=== PATIENT | female | born 1995 | race Caucasian/White ===

== ENCOUNTER 2016-10-28 19:41 | Outpatient (CLI) | payer OTHER ==
--- NOTE | 2016-10-28 20:34 | Non Stress Test Report ---
Non Stress Test Datetime Report Generated by CPN: 10/28/2016 20:34 DEMOGRAPHIC Test Number: 1 EGA NST: 37.2 INDICATION Indication for Study: Ordered by Provider Indication for Study (NST) Other: LC MONITORING Monitor Explained: Monitor Explained; Test Explained; Patient Verbalized Understanding Time on Monitor: 10/28/2016 19:56 Time off Monitor: 10/28/2016 20:25 NST Duration: 29 NST INTERVENTIONS NST Interventions: PO Hydration; Reposition Patient Physician Notified NST: Dr. Neilsen BABY A: [id number] BABY A Movement : Present Contraction Frequency : Irritability FHR Baseline : 150 Accelerations : 15X15 Decelerations : Variable Variability : Moderate 6-25bpm NST Review: Meets Criteria for Reactive NST NST Review and Verified By : Dusty Mcpherson RN NSGordy Results: Reactive NST REPORT Report Trigger: Send Report
--- NOTE | 2016-10-28 23:38 | L&D Discharge Summary ---
OB Discharge Summary Datetime Report Generated by CPN: 10/28/2016 23:38 DISCHARGE DIAGNOSIS Diagnosis/Symptoms: Other Diagnoses/Symptoms Other: NST Number of Babies in Womb: 1 Parity: 0 DIET/ACTIVITY/RESTRICTIONS Diet: Regular Activity: Normal Activity TEACHING/INSTRUCTIONS/REFERRALS Instructions Given To: Patient and significant other Instructions Understood: Patient Verbalized Understanding; Support Person Verbalized Understanding Referrals: None Educational Materials- Other: NST DISCHARGE INFORMATION Discharged AMA: No Discharge Date/Time: 10/28/2016 20:30 Discharged To: Home Discharge Provider Name: Dr. Crabtree Accompanied By: Significant Other Discharge Method: Ambulatory Condition: Stable FOLLOW UP INFORMATION Follow Up With: [facility] Follow Up On: As Scheduled Follow Up Phone Number: [facility] - Comments: Discussed NST and signs and symptoms of when to return to office or hospital with patient and significant other. Both, patient and significant other, verbalized understanding. Patient discharged home for reactive NST via ambulation in stable condition. GENERAL INSTR-CALL PROVIDER IF: Contractions: Contractions or cramps become more frequent than 8 in one hour or 4 in 20 minutes; Regular painful contractions every 5 minutes or less for one hour. Time your contractions from the beginning of one to the beginning of the next Pressure: Pressure in your vagina or lower abdomen that may feel like the baby is pushing down Period Like Cramps: Period-like cramps or low dull backache that may come and go Cramps/Diarrhea: Abdominal cramps that may be accompanied by diarrhea Gush of Fluid/Blood: Gush of fluid or blood from your vagina (it is normal to have spotting after vaginal exam or intercourse) Vaginal Discharge: Change in the type or amount of vaginal discharge Decreased Movement: Your baby is not moving as much as usual- 4 movements in 1 hour after drinking and resting on side Temperature: Temperature greater than 100.0(F) orally
== END 2016-10-28 20:30 | disposition home or self-care (01) ==
LOC: LC 19:41
PROVIDERS: ATTEND Obstetrics & Gynecology
PROC: 4A1HXCZ Monitoring of Products of Conception, Cardiac Rate, External Approach (ICD-10-PCS; principal; 2016-10-28)
DX: O76 Abnormality in fetal heart rate and rhythm complicating labor and delivery (principal); Z3A.37 37 weeks gestation of pregnancy
CPT/HCPCS: 59025

== ENCOUNTER 2016-11-04 18:11 | Outpatient (CLI) | payer OTHER ==
--- NOTE | 2016-11-04 19:04 | Non Stress Test Report ---
Non Stress Test Datetime Report Generated by CPN: 11/04/2016 19:03 DEMOGRAPHIC EGA NST: 38.2 INDICATION Indication for Study: Diabetes Mellitus MONITORING Monitor Explained: Monitor Explained; Test Explained; Patient Verbalized Understanding Time on Monitor: 11/04/2016 18:27 Time off Monitor: 11/04/2016 18:53 NST Duration: 26 NST INTERVENTIONS NST Interventions: PO Hydration; Reposition Patient Physician Notified NST: A. Emmel CNM BABY A Movement : Present Contraction Frequency : none FHR Baseline : 140 Accelerations : 15X15 Decelerations : None Variability : Moderate 6-25bpm NST Review: Meets Criteria for Reactive NST NST Review and Verified By : TIP Bates Results: Reactive NST REPORT Report Trigger: Send Report
--- NOTE | 2016-11-04 21:09 | L&D Discharge Summary ---
OB Discharge Summary Datetime Report Generated by CPN: 11/04/2016 21:08 DISCHARGE DIAGNOSIS Diagnosis/Symptoms: Reassuring Surveillance - Annotate Details Diagnoses/Symptoms Other: IUP, 38.2, Reactive NST Gestation: 37.2 Number of Babies in Womb: 1 Parity: 0 DIET/ACTIVITY/RESTRICTIONS Diet: Regular Activity: Normal Activity TEACHING/INSTRUCTIONS/REFERRALS Instructions Given To: Patient Instructions Understood: Patient Verbalized Understanding; Support Person Verbalized Understanding Referrals: None Educational Materials- Other: [employer] DISCHARGE INFORMATION Discharged AMA: No Discharge Date/Time: 11/04/2016 19:01 Discharged To: Home Discharge Provider Name: Faisal Paz CNM Accompanied By: self Discharge Method: Ambulatory Condition: Stable FOLLOW UP INFORMATION Follow Up With: [facility] Follow Up On: As Scheduled Follow Up Phone Number: [facility] - Comments: Discussed NST and signs and symptoms of when to return to office or hospital with patient and significant other. Both, patient and significant other, verbalized understanding. Patient discharged home for reactive NST via ambulation in stable condition. GENERAL INSTR-CALL PROVIDER IF: Contractions: Regular painful contractions every 5 minutes or less for one hour. Time your contractions from the beginning of one to the beginning of the next Pressure: Pressure in your vagina or lower abdomen that may feel like the baby is pushing down Period Like Cramps: Period-like cramps or low dull backache that may come and go Cramps/Diarrhea: Abdominal cramps that may be accompanied by diarrhea Gush of Fluid/Blood: Gush of fluid or blood from your vagina (it is normal to have spotting after vaginal exam or intercourse) Vaginal Discharge: Change in the type or amount of vaginal discharge Decreased Movement: Your baby is not moving as much as usual- 4 movements in 1 hour after drinking and resting on side Temperature: Temperature greater than 100.0(F) orally
--- NOTE | 2016-11-04 22:49 | L&D Flow Sheet ---
LD Flowsheet Datetime Report Generated by CPN: 11/04/2016 22:45 Datetime: 11/04/2016 18:48 NBP Sys/Violet/Mean (mmHg): 124 (QS system process) : 59 (QS system process) : 78 (QS system process) Pulse: 89 (QS system process) LaborFlag: Labor (QS system process) Datetime: 11/04/2016 18:32 Communication: RN at Bedside; RN Reviewed Strip (Nini Broman, RN) Datetime: 11/04/2016 18:29 Patient Position/Activity: HOB Lowered; Left Lateral (Nnii Broman, RN) I/O Interventions: Popsicle; Clear Liquids Given (Nini Broman, RN) Datetime: 11/04/2016 18:28 NBP Sys/Violet/Mean (mmHg): 112 (QS system process) : 58 (QS system process) : 78 (QS system process) Pulse: 98 (QS system process) Comments: positioned off back to left side (Isela Camp, RNC) LaborFlag: Labor (QS system process) Datetime: 11/04/2016 15:00 Stage of : Labor (Nini Rogers RN)
--- NOTE | 2016-11-04 22:49 | L&D General Admission ---
General Admit Datetime Report Generated by CPN: 11/04/2016 22:45 INFORMATION Patient Age: 21 (10/28/2016 19:41:QS system process) EDC: 11/16/2016 00:00 (10/28/2016 20:00:Danitza Del Castillo RN) : 1 (10/28/2016 20:00:Danitza Del Castillo RN) Para: 0 (10/28/2016 20:00:Danitza Del Castillo RN) Term: 0 (10/28/2016 20:00:Cynthia Mcpherson RN) : 0 (10/28/2016 20:00:Cynthia Mcpherson RN) Spontaneous Abortions: 0 (10/28/2016 20:00:Cynthia Mcpherson RN) Induced Abortions: 0 (10/28/2016 20:00:Cynthia Mcpherson RN) Livin (10/28/2016 20:00:Cynthia Mcpherson RN) Cesareans: 0 (10/28/2016 20:00:Cynthia Mcpherson RN) VBACs: 0 (10/28/2016 20:00:Cynthia Mcpherson RN) Ectopic: 0 (10/28/2016 20:00:Cynthia Mcpherson RN) Multiple Births: 0 (10/28/2016 20:00:Cynthia Mcpherson RN) Baby, Number in Womb: 1 (10/28/2016 20:00:Cynthia Mcpherson RN) CARE Primary Nursing Professor: [facility] (10/28/2016 20:00:Danitza Del Castillo RN) Adequate Care: Yes (10/28/2016 20:00:Danitza Del Castillo RN) Height (in): 61 (10/28/2016 20:12:QS system process) ALLERGIES Medication Allergy: No (10/28/2016 20:00:Danitza Del Castillo RN) Medication Allergies: No Known Allergies (10/28/2016) (10/28/2016 20:10:QS system process) Medication Allergies: N/A (10/28/2016 20:00:Danitza Del Castillo RN) Latex Allergy: No Latex Allergies (10/28/2016 20:00:Danitza Del Castillo RN) Food Allergies: N/A (10/28/2016 20:00:Danitza Del Castillo RN) Environmental Allergies: N/A (10/28/2016 20:00:Danitza Del Castillo RN) COMMUNICATION Primary Language: Russian (10/28/2016 20:00:Danitza Del Castillo RN) Medical Tx Preferred Language: Russian (10/28/2016 20:00:Danitza Del Castillo RN) Communication Barrier(s): None (10/28/2016 20:00:Danitza Del Castillo RN) DEMOGRAPHICS Address: [address] [place] [id number] (10/28/2016 19:41:QS system process) Zipcode: [address] (10/28/2016 19:41:QS system process) Home (10/28/2016 19:41:QS system process) N: [id number] (10/28/2016 19:41:QS system process) Next of Kin Name: SOCORRO SANCHEZ (10/28/2016 19:41:QS system process) Next of Kin (10/28/2016 19:41:QS system process) Next of Kin Relationship: OR (10/28/2016 19:41:QS system process) Date of : 1995 (10/28/2016 19:41:QS system process) Marital Status: Single (10/28/2016 19:41:QS system process) Sex: Female (10/28/2016 19:41:QS system process) Race: (10/28/2016 19:41:QS system process) Ethnicity: Non- or (10/28/2016 19:41:QS system process) Jain: None (10/28/2016 19:41:QS system process) FOB Involved: Yes (10/28/2016 20:00:Danitza Del Castillo RN) Father of Baby Name: Socorro Sanchez (10/28/2016 20:00:Danitza Del Castillo RN) DRUG AND ALCOHOL USE Alcohol: No (10/28/2016 20:00:Danitza Del Castillo RN) Cigarettes: Former Smoker. [id number] (10/28/2016 20:00:Danitza Del Castillo RN) Marijuana: No (10/28/2016 20:00:Danitza Del Castillo RN) Cocaine: No (10/28/2016 20:00:Danitza Del Castillo RN) Other Illicit Drugs: No (10/28/2016 20:00:Danitza Del Castillo RN) VACCINE HISTORY Influenza Vaccine: No (10/28/2016 20:00:Danitza Del Castillo RN) Pneumococcal Vaccine: No (10/28/2016 20:00:Danitza Del Castillo RN) Tetanus Vaccine: No (10/28/2016 20:00:Danitza Del Castillo RN) Tdap Vaccine: No (10/28/2016 20:00:Danitza Del Castillo RN) Hepatitis B Vaccine: No (10/28/2016 20:00:Danitza Del Castillo RN) Feeding Preference: Breast (10/28/2016 20:00:Danitza Del Castillo RN) Benefit of Breast Feed Discussed: Yes (10/28/2016 20:00:Danitza Del Castillo RN) Circumcision: Yes (10/28/2016 20:00:Danitza Del Castillo RN) Classes Attended: No (10/28/2016 20:00:Danitza Del Castillo RN) Tubal Ligation: No (10/28/2016 20:00:Danitza Del Castillo RN) Tubal Authorization Signed: N/A (10/28/2016 20:00:Danitza Del Castillo RN) Consent: N/A (10/28/2016 20:00:Danitza Del Castillo RN) Consent Signed: N/A (10/28/2016 20:00:Danitza Del Castillo RN) Pain Management Plans: Epidural (10/28/2016 20:00:Danitza Del Castillo RN) Plans for Labor and Delivery: None (10/28/2016 20:00:Danitza Del Castillo RN) Support Person: Socorro Sanchez (10/28/2016 20:00:Danitza Del Castillo RN) Support Person Relationship: Significant Other (10/28/2016 20:00:Danitza Del Castillo RN) Cultural/Spritual Practice: No (10/28/2016 20:00:Danitza Del Castillo RN) Spir/Cult Dietary Needs: No (10/28/2016 20:00:Danitza Del Castillo RN) LIVING SITUATION/DISCHARGE PLAN Living Arrangements: Apartment (10/28/2016 20:00:Danitza Del Castillo RN) Adequate Access to:: Electric; Heat; Refrigeration; Plumbing/Running water; Phone; Transportation (10/28/2016 20:00:Danitza Del Castillo RN) WIC Program: No (10/28/2016 20:00:Danitza Del Castillo RN) Discharge Social Psychologist Person: Socorro Sanchez (10/28/2016 20:00:Danitza Del Castillo RN) Person to Help after Discharge: Socorro Sanchez (10/28/2016 20:00:Danitza Del Castillo RN) Currently Using Commun Resources: No (10/28/2016 20:00:Danitza Del Castillo RN) Outside Agency/Harvest Manager: No (10/28/2016 20:00:Danitza Del Castillo RN) Car Seat for Discharge: Yes (10/28/2016 20:00:Danitza Del Castillo RN) Adoption Requested: No (10/28/2016 20:00:Danitza Del Castillo RN) Pt Contact w/ Post : N/A (10/28/2016 20:00:Danitza Del Castillo RN) OB/PREVIOUS HISTORY Current Procedures: Ultrasound; NST (10/28/2016 20:00:Danitza Del Castillo RN) History of Previous : No (10/28/2016 20:00:Danitza Del Castillo RN) History of Gestational Diabetes: Yes (10/28/2016 20:00:Danitza Del Castillo RN) History of PIH: No (10/28/2016 20:00:Danitza Del Castillo RN) History of Incompetent Cervix: No (10/28/2016 20:00:Danitza Del Castillo RN) History of Placenta Previa/Abrup: No (10/28/2016 20:00:Danitza Del Castillo RN) History of Macrosomia: No (10/28/2016 20:00:Danitza Del Castillo RN) History of IUGR: No (10/28/2016 20:00:Danitza Del Castillo RN) History of Hemorrhage: No (10/28/2016 20:00:Danitza Del Castillo RN) History of Loss/Stillborn: No (10/28/2016 20:00:Danitza Del Castillo RN) History of : No (10/28/2016 20:00:Danitza Del Castillo RN) History of D (Rh) Sensitization: No (10/28/2016 20:00:Danitza Del Castillo RN) History Recurrent Loss/Stillborn: No (10/28/2016 20:00:Danitza Del Castillo RN) History Depression/PP Depression: No (10/28/2016 20:00:Danitza Del Castillo RN) History of Uterine Anomaly/JAVI: No (10/28/2016 20:00:Danitza Del Castillo RN) History of Infertility: No (10/28/2016 20:00:Danitza Del Castillo RN) History of ART Treatment: No (10/28/2016 20:00:Danitza Del Castillo RN) History of JAVI: No (10/28/2016 20:00:Danitza Del Castillo RN) Comments Obstetrical History: G1 - Current (10/28/2016 20:00:Danitza Del Castillo RN) MEDICAL HISTORY Med Hx Diabetes: Yes (10/28/2016 20:00:Danitza Del Castillo RN) Diabetes Type: Gestational Diabetes (10/28/2016 20:00:Danitza Del Castillo RN) Med Hx Hypertension: No (10/28/2016 20:00:Danitza Del Castillo RN) Med Hx Heart Disease: No (10/28/2016 20:00:Danitza Del Castillo RN) Med Hx Autoimmune Disorder: No (10/28/2016 20:00:Danitza Del Castillo RN) Med Hx Kidney Disease/UTI: No (10/28/2016 20:00:Danitza Del Castillo RN) Med Hx Neurologic/Epilepsy: No (10/28/2016 20:00:Danitza Del Castillo RN) Med Hx Psychiatric Disorders: No (10/28/2016 20:00:Danitza Del Castillo RN) Med Hx Hepatitis/Liver Disease: No (10/28/2016 20:00:Danitza Del Castillo RN) Med Hx Varicosities/Phlebitis: No (10/28/2016 20:00:Danitza Del Castillo RN) Med Hx Thyroid Dysfunction: No (10/28/2016 20:00:Danitza Del Castillo RN) Med Hx Trauma/Violence: No (10/28/2016 20:00:Danitza Del Castillo RN) Med Hx Blood Transfusion: No (10/28/2016 20:00:Danitza Del Castillo RN) Med Hx Pulmonary (Asthma,TB): No (10/28/2016 20:00:Danitza Del Castillo RN) Med Hx Breast: No (10/28/2016 20:00:Danitza Del Castillo RN) Med Hx BARREL LATHE OPERATOR Surgery: No (10/28/2016 20:00:Danitza Del Castillo RN) Med Hx Hospitalization/Surgery: No (10/28/2016 20:00:Danitza Del Castillo RN) Med Hx Anesthetic Complications: No (10/28/2016 20:00:Danitza Del Castillo RN) Med Hx Abnormal Pap Smear: No (10/28/2016 20:00:Danitza Del Castillo RN) Other Medical Diseases: No (10/28/2016 20:00:Danitza Del Castillo RN) Med Hx Significant Family Hx: No (10/28/2016 20:00:Danitza Del Castillo RN) INFECTIOUS HISTORY Inf Hx Gonorrhea: No (10/28/2016 20:00:Danitza Del Castillo RN) Inf Hx Chlamydia: No (10/28/2016 20:00:Danitza Del Castillo RN) Inf Hx Syphilis: No (10/28/2016 20:00:Danitza Del Castillo RN) Inf Hx HIV/AIDS: No (10/28/2016 20:00:Danitza Del Castillo RN) Inf Hx Human Papilloma Virus: No (10/28/2016 20:00:Danitza Del Castillo RN) Inf Hx Pt/Partner Genital Herpes: No (10/28/2016 20:00:Danitza Del Castillo RN) Inf Hx Tuberculosis/Exposure: No (10/28/2016 20:00:Danitza Del Castillo RN) Inf Hx Hepatitis B,C: No (10/28/2016 20:00:Danitza Del Castillo RN) Inf Hx Rash or Viral Illness: No (10/28/2016 20:00:Danitza Del Castillo RN) GENETIC HISTORY Gen Hx Age >=35 at LASHAWN: No (10/28/2016 20:00:Danitza Del Castillo RN) Gen Hx Thalassemia: No (10/28/2016 20:00:Danitza Del Castillo RN) Gen Hx Congenital Heart Defect: No (10/28/2016 20:00:Danitza Del Castillo RN) Gen Hx Neural Tube Defect: No (10/28/2016 20:00:Danitza Del Castillo RN) Gen Hx Down's Syndrome: No (10/28/2016 20:00:Danitza Del Castillo RN) Gen Hx Campbell-Sachs: No (10/28/2016 20:00:Danitza Del Castillo RN) Gen Hx Lazara: No (10/28/2016 20:00:Danitza Del Castillo RN) Gen Hx Familial Dysautonomia: No (10/28/2016 20:00:Danitza Del Castillo RN) Gen Hx Sickle Cell Disease/Trait: No (10/28/2016 20:00:Danitza Del Castillo RN) Gen Hx Hemophilia/Blood Disorder: No (10/28/2016 20:00:Danitza Del Castillo RN) Gen Hx Muscular Dystrophy: No (10/28/2016 20:00:Danitza Del Castillo RN) Gen Hx Cystic Fibrosis: No (10/28/2016 20:00:Danitza Del Castillo RN) Gen Hx Huntingtons Chorea: No (10/28/2016 20:00:Danitza Del Castillo RN) Gen Hx Mental Retardation/Autism: No (10/28/2016 20:00:Danitza Del Castillo RN) Gen Hx Tested for Fragile X: No (10/28/2016 20:00:Danitza Del Castillo RN) Gen Hx Other Inher/Chromosomal: No (10/28/2016 20:00:Danitza Del Castillo RN) Gen Hx Maternal Metabolic DO: No (10/28/2016 20:00:Danitza Del Castillo RN) Gen Hx Pt Father or FOB Defect: No (10/28/2016 20:00:Danitza Del Castillo RN) Gen Hx Other Genetic History: No (10/28/2016 20:00:Danitza Del Castillo RN) Gen Hx Drugs/Meds since LMP: Yes (10/28/2016 20:00:Danitza Del Castillo RN) Gen Hx Medications: vitamins (10/28/2016 20:00:Danitza Del Castillo RN)
--- NOTE | 2016-11-04 22:49 | Antepartum Discharge Summary ---
Antepartum DC Datetime Report Generated by CPN: 11/04/2016 22:45 Diet: Regular (11/04/2016 19:01:Nini Rogers RN) Activity: Normal Activity (11/04/2016 19:01:Nini Rogers RN) Instructions Given To: Patient (11/04/2016 19:01:Nini Rogers RN) Instructions Understood: Patient Verbalized Understanding; Support Person Verbalized Understanding (11/04/2016 19:01:Nini Rogers RN) Referrals: None (11/04/2016 19:01:Nini Rogers RN) Educational Materials- Other: [employer] [facility] (11/04/2016 19:01:Nini Rogers RN) Discharged AMA: No (11/04/2016 19:01:Nini Rogers RN) Discharge Date/Time: 11/04/2016 19:01 (11/04/2016 19:01:Nini Rogers RN) Discharged To: Home (11/04/2016 19:01:Nini Rogers RN) Discharge Provider Name: Faisal Paz CNM (11/04/2016 19:01:Nini Rogers RN) Accompanied By: self (11/04/2016 19:01:Nini Rogers RN) Discharge Method: Ambulatory (11/04/2016 19:01:Nini Rogers RN) Condition: Stable (11/04/2016 19:01:Nini Rogers RN) Follow Up With: [facility] (11/04/2016 19:01:Nini Rogers RN) Follow Up On: As Scheduled (11/04/2016 19:01:Nini Rogers RN) Follow Up Phone Number: [facility] - (11/04/2016 19:01:Nini Rogers RN) Contractions: Regular painful contractions every 5 minutes or less for one hour. Time your contractions from the beginning of one to the beginning of the next (11/04/2016 19:01:Nini Rogers RN) Pressure: Pressure in your vagina or lower abdomen that may feel like the baby is pushing down (11/04/2016 19:01:Nini Rogers RN) Gush of Fluid/Blood: Gush of fluid or blood from your vagina (it is normal to have spotting after vaginal exam or intercourse) (11/04/2016 19:01:Nini Rogers RN) Vaginal Discharge: Change in the type or amount of vaginal discharge (11/04/2016 19:01:Nini Rogers RN) Decreased Movement: Your baby is not moving as much as usual- 4 movements in 1 hour after drinking and resting on side (11/04/2016 19:01:Nini Rogers RN) Urinary Output: Decreased urinary output or dark colored urine (11/04/2016 19:01:Nini Rogers RN)
--- NOTE | 2016-11-04 22:49 | L&D Discharge Summary ---
OB Discharge Summary Datetime Report Generated by CPN: 11/04/2016 22:45 DISCHARGE DIAGNOSIS Diagnosis/Symptoms: Reassuring Surveillance - Annotate Details Diagnoses/Symptoms Other: IUP, 38.2, Reactive NST Gestation: 38.2 Number of Babies in Womb: 1 Parity: 0 DIET/ACTIVITY/RESTRICTIONS Diet: Regular Activity: Normal Activity TEACHING/INSTRUCTIONS/REFERRALS Instructions Given To: Patient Instructions Understood: Patient Verbalized Understanding; Support Person Verbalized Understanding Referrals: None Educational Materials- Other: [employer] DISCHARGE INFORMATION Discharged AMA: No Discharge Date/Time: 11/04/2016 19:01 Discharged To: Home Discharge Provider Name: Faisal Paz CNM Accompanied By: self Discharge Method: Ambulatory Condition: Stable FOLLOW UP INFORMATION Follow Up With: [facility] Follow Up On: As Scheduled Follow Up Phone Number: [facility] - Comments: Discussed NST and signs and symptoms of when to return to office or hospital with patient and significant other. Both, patient and significant other, verbalized understanding. Patient discharged home for reactive NST via ambulation in stable condition. GENERAL INSTR-CALL PROVIDER IF: Contractions: Regular painful contractions every 5 minutes or less for one hour. Time your contractions from the beginning of one to the beginning of the next Pressure: Pressure in your vagina or lower abdomen that may feel like the baby is pushing down Period Like Cramps: Period-like cramps or low dull backache that may come and go Cramps/Diarrhea: Abdominal cramps that may be accompanied by diarrhea Gush of Fluid/Blood: Gush of fluid or blood from your vagina (it is normal to have spotting after vaginal exam or intercourse) Vaginal Discharge: Change in the type or amount of vaginal discharge Decreased Movement: Your baby is not moving as much as usual- 4 movements in 1 hour after drinking and resting on side Temperature: Temperature greater than 100.0(F) orally
--- NOTE | 2016-11-05 04:49 | Antepartum Discharge Summary ---
Antepartum DC Datetime Report Generated by CPN: 11/05/2016 04:46 Diet: Regular (11/04/2016 19:01:Nini Rogers RN) Activity: Normal Activity (11/04/2016 19:01:Nini Rogers RN) Instructions Given To: Patient (11/04/2016 19:01:Nini Rogers RN) Instructions Understood: Patient Verbalized Understanding; Support Person Verbalized Understanding (11/04/2016 19:01:Nini Rogers RN) Referrals: None (11/04/2016 19:01:Nini Rogers RN) Educational Materials- Other: [employer] (11/04/2016 19:01:Nini Rogers RN) Discharged AMA: No (11/04/2016 19:01:Nini Rogers RN) Discharge Date/Time: 11/04/2016 19:01 (11/04/2016 19:01:Nini Rogers RN) Discharged To: Home (11/04/2016 19:01:Nini Rogers RN) Discharge Provider Name: Faisal Paz CNM (11/04/2016 19:01:Nini Rogers RN) Accompanied By: self (11/04/2016 19:01:Nini Rogers RN) Discharge Method: Ambulatory (11/04/2016 19:01:Nini Rogers RN) Condition: Stable (11/04/2016 19:01:Nini Rogers RN) Follow Up With: [facility] (11/04/2016 19:01:Nini Rogers RN) Follow Up On: As Scheduled (11/04/2016 19:01:Nini Rogers RN) Follow Up Phone Number: [facility] - (11/04/2016 19:01:Nini Rogers RN) Contractions: Regular painful contractions every 5 minutes or less for one hour. Time your contractions from the beginning of one to the beginning of the next (11/04/2016 19:01:Nini Rogers RN) Pressure: Pressure in your vagina or lower abdomen that may feel like the baby is pushing down (11/04/2016 19:01:Nini Rogers RN) Gush of Fluid/Blood: Gush of fluid or blood from your vagina (it is normal to have spotting after vaginal exam or intercourse) (11/04/2016 19:01:Nini Rogers RN) Vaginal Discharge: Change in the type or amount of vaginal discharge (11/04/2016 19:01:Nini Rogers RN) Decreased Movement: Your baby is not moving as much as usual- 4 movements in 1 hour after drinking and resting on side (11/04/2016 19:01:Nini Rogers RN) Urinary Output: Decreased urinary output or dark colored urine (11/04/2016 19:01:Nini Rogers RN)
--- NOTE | 2016-11-05 04:49 | L&D General Admission ---
General Admit Datetime Report Generated by CPN: 11/05/2016 04:46 INFORMATION Patient Age: 21 (10/28/2016 19:41:QS system process) EDC: 11/16/2016 00:00 (10/28/2016 20:00:Danitza Del Castillo RN) : 1 (10/28/2016 20:00:Danitza Del Castillo RN) Para: 0 (10/28/2016 20:00:Danitza Del Castillo RN) Term: 0 (10/28/2016 20:00:Cynthia Mcpherson RN) : 0 (10/28/2016 20:00:Cynthia Mcpherson RN) Spontaneous Abortions: 0 (10/28/2016 20:00:Cynthia Mcpherson RN) Induced Abortions: 0 (10/28/2016 20:00:Cynthia Mcpherson RN) Livin (10/28/2016 20:00:Cynthia Mcpherson RN) Cesareans: 0 (10/28/2016 20:00:Cynthia Mcpherson RN) VBACs: 0 (10/28/2016 20:00:Cynthia Mcpherson RN) Ectopic: 0 (10/28/2016 20:00:Cynthia Mcpherson RN) Multiple Births: 0 (10/28/2016 20:00:Cynthia Mcphesron RN) Baby, Number in Womb: 1 (10/28/2016 20:00:Cynthia Mcpherson RN) CARE Primary Mailing Machine Helper: [facility] (10/28/2016 20:00:Danitza Del Castillo RN) Adequate Care: Yes (10/28/2016 20:00:Danitza Del Castillo RN) Height (in): 61 (10/28/2016 20:12:QS system process) ALLERGIES Medication Allergy: No (10/28/2016 20:00:Danitza Del Castillo RN) Medication Allergies: No Known Allergies (10/28/2016) (10/28/2016 20:10:QS system process) Medication Allergies: N/A (10/28/2016 20:00:Danitza Del Castillo RN) Latex Allergy: No Latex Allergies (10/28/2016 20:00:Danitza Del Castillo RN) Food Allergies: N/A (10/28/2016 20:00:Danitza Del Castillo RN) Environmental Allergies: N/A (10/28/2016 20:00:Danitza Del Castillo RN) COMMUNICATION Primary Language: Jordanian (10/28/2016 20:00:Danitza Del Castillo RN) Medical Tx Preferred Language: Jordanian (10/28/2016 20:00:Danitza Del Castillo RN) Communication Barrier(s): None (10/28/2016 20:00:Danitza Del Castillo RN) DEMOGRAPHICS Address: [address] [place] [id number] (10/28/2016 19:41:QS system process) Zipcode: [id number] (10/28/2016 19:41:QS system process) Home (10/28/2016 19:41:QS system process) N: [phone] (10/28/2016 19:41:QS system process) Next of Kin Name: SOCORRO SANCHEZ (10/28/2016 19:41:QS system process) Next of Kin (10/28/2016 19:41:QS system process) Next of Kin Relationship: OR (10/28/2016 19:41:QS system process) Date of : 1995 (10/28/2016 19:41:QS system process) Marital Status: Single (10/28/2016 19:41:QS system process) Sex: Female (10/28/2016 19:41:QS system process) Race: (10/28/2016 19:41:QS system process) Ethnicity: Non- or (10/28/2016 19:41:QS system process) Scientologist: None (10/28/2016 19:41:QS system process) FOB Involved: Yes (10/28/2016 20:00:Danitza Del Castillo RN) Father of Baby Name: Socorro Sanchez (10/28/2016 20:00:Danitza Del Castillo RN) DRUG AND ALCOHOL USE Alcohol: No (10/28/2016 20:00:Danitza Del Castillo RN) Cigarettes: Former Smoker. [id number] (10/28/2016 20:00:Danitza Del Castillo RN) Marijuana: No (10/28/2016 20:00:Danitza Del Castillo RN) Cocaine: No (10/28/2016 20:00:Danitza Del Castillo RN) Other Illicit Drugs: No (10/28/2016 20:00:Danitza Del Castillo RN) VACCINE HISTORY Influenza Vaccine: No (10/28/2016 20:00:Danitza Del Castillo RN) Pneumococcal Vaccine: No (10/28/2016 20:00:Danitza Del Castillo RN) Tetanus Vaccine: No (10/28/2016 20:00:Danitza Del Castillo RN) Tdap Vaccine: No (10/28/2016 20:00:Danitza Del Castillo RN) Hepatitis B Vaccine: No (10/28/2016 20:00:Danitza Del Castillo RN) Feeding Preference: Breast (10/28/2016 20:00:Danitza Del Castillo RN) Benefit of Breast Feed Discussed: Yes (10/28/2016 20:00:Danitza Del Castillo RN) Circumcision: Yes (10/28/2016 20:00:Danitza Del Castillo RN) Classes Attended: No (10/28/2016 20:00:Danitza Del Castillo RN) Tubal Ligation: No (10/28/2016 20:00:Danitza Del Castillo RN) Tubal Authorization Signed: N/A (10/28/2016 20:00:Danitza Del Castillo RN) Consent: N/A (10/28/2016 20:00:Danitza Del Castillo RN) Consent Signed: N/A (10/28/2016 20:00:Danitza Del Castillo RN) Pain Management Plans: Epidural (10/28/2016 20:00:Danitza Del Castillo RN) Plans for Labor and Delivery: None (10/28/2016 20:00:Danitza Del Castillo RN) Support Person: Socorro Sanchez (10/28/2016 20:00:Danitza Del Castillo RN) Support Person Relationship: Significant Other (10/28/2016 20:00:Danitza Del Castillo RN) Cultural/Spritual Practice: No (10/28/2016 20:00:Danitza Del Castillo RN) Spir/Cult Dietary Needs: No (10/28/2016 20:00:Danitza Del Castillo RN) LIVING SITUATION/DISCHARGE PLAN Living Arrangements: Apartment (10/28/2016 20:00:Danitza Del Castillo RN) Adequate Access to:: Electric; Heat; Refrigeration; Plumbing/Running water; Phone; Transportation (10/28/2016 20:00:Danitza Del Castillo RN) WIC Program: No (10/28/2016 20:00:Danitza Del Castillo RN) Discharge Premium Note Interest Calculator Clerk Person: Socorro Sanchez (10/28/2016 20:00:Danitza Del Castillo RN) Person to Help after Discharge: Socorro Sanchez (10/28/2016 20:00:Danitza Del Castillo RN) Currently Using Commun Resources: No (10/28/2016 20:00:Danitza Del Castillo RN) Outside Agency/Retail Personal Banker: No (10/28/2016 20:00:Danitza Del Castillo RN) Car Seat for Discharge: Yes (10/28/2016 20:00:Danitza Del Castillo RN) Adoption Requested: No (10/28/2016 20:00:Danitza Del Castillo RN) Pt Contact w/ Post : N/A (10/28/2016 20:00:Danitza Del Castillo RN) OB/PREVIOUS HISTORY Current Procedures: Ultrasound; NST (10/28/2016 20:00:Danitza Del Castillo RN) History of Previous : No (10/28/2016 20:00:Danitza Del Castillo RN) History of Gestational Diabetes: Yes (10/28/2016 20:00:Danitza Del Castillo RN) History of PIH: No (10/28/2016 20:00:Danitza Del Castillo RN) History of Incompetent Cervix: No (10/28/2016 20:00:Danitza Del Castillo RN) History of Placenta Previa/Abrup: No (10/28/2016 20:00:Danitza Del Castillo RN) History of Macrosomia: No (10/28/2016 20:00:Danitza Del Castillo RN) History of IUGR: No (10/28/2016 20:00:Danitza Del Castillo RN) History of Hemorrhage: No (10/28/2016 20:00:Danitza Del Castillo RN) History of Loss/Stillborn: No (10/28/2016 20:00:Danitza Del Castillo RN) History of : No (10/28/2016 20:00:Danitza Del Castillo RN) History of D (Rh) Sensitization: No (10/28/2016 20:00:Danitza Del Castillo RN) History Recurrent Loss/Stillborn: No (10/28/2016 20:00:Danitza Del Castillo RN) History Depression/PP Depression: No (10/28/2016 20:00:Danitza Del Castillo RN) History of Uterine Anomaly/JAVI: No (10/28/2016 20:00:Danitza Del Castillo RN) History of Infertility: No (10/28/2016 20:00:Danitza Del Castillo RN) History of ART Treatment: No (10/28/2016 20:00:Danitza Del Castillo RN) History of JAVI: No (10/28/2016 20:00:Danitza Del Castillo RN) Comments Obstetrical History: G1 - Current (10/28/2016 20:00:Danitza Del Castillo RN) MEDICAL HISTORY Med Hx Diabetes: Yes (10/28/2016 20:00:Danitza Del Castillo RN) Diabetes Type: Gestational Diabetes (10/28/2016 20:00:Danitza Del Castillo RN) Med Hx Hypertension: No (10/28/2016 20:00:Danitza Del Castillo RN) Med Hx Heart Disease: No (10/28/2016 20:00:Danitza Del Castillo RN) Med Hx Autoimmune Disorder: No (10/28/2016 20:00:Danitza Del Castillo RN) Med Hx Kidney Disease/UTI: No (10/28/2016 20:00:Danitza Del Castillo RN) Med Hx Neurologic/Epilepsy: No (10/28/2016 20:00:Danitza Del Castillo RN) Med Hx Psychiatric Disorders: No (10/28/2016 20:00:Danitza Del Castillo RN) Med Hx Hepatitis/Liver Disease: No (10/28/2016 20:00:Danitza Del Castillo RN) Med Hx Varicosities/Phlebitis: No (10/28/2016 20:00:Danitza Del Castillo RN) Med Hx Thyroid Dysfunction: No (10/28/2016 20:00:Danitza Del Castillo RN) Med Hx Trauma/Violence: No (10/28/2016 20:00:Danitza Del Castillo RN) Med Hx Blood Transfusion: No (10/28/2016 20:00:Danitza Del Castillo RN) Med Hx Pulmonary (Asthma,TB): No (10/28/2016 20:00:Danitza Del Castillo RN) Med Hx Breast: No (10/28/2016 20:00:Danitza Del Castillo RN) Med Hx SENIOR ASP NET DEVELOPER Surgery: No (10/28/2016 20:00:Danitza Del Castillo RN) Med Hx Hospitalization/Surgery: No (10/28/2016 20:00:Danitza Del Castillo RN) Med Hx Anesthetic Complications: No (10/28/2016 20:00:Danitza Del Castillo RN) Med Hx Abnormal Pap Smear: No (10/28/2016 20:00:Danitza Del Castillo RN) Other Medical Diseases: No (10/28/2016 20:00:Danitza Del Castillo RN) Med Hx Significant Family Hx: No (10/28/2016 20:00:Danitza Del Castillo RN) INFECTIOUS HISTORY Inf Hx Gonorrhea: No (10/28/2016 20:00:Danitza Del Castillo RN) Inf Hx Chlamydia: No (10/28/2016 20:00:Danitza Del Castillo RN) Inf Hx Syphilis: No (10/28/2016 20:00:Danitza Del Castillo RN) Inf Hx HIV/AIDS: No (10/28/2016 20:00:Danitza Del Castillo RN) Inf Hx Human Papilloma Virus: No (10/28/2016 20:00:Danitza Del Castillo RN) Inf Hx Pt/Partner Genital Herpes: No (10/28/2016 20:00:Danitza Del Castillo RN) Inf Hx Tuberculosis/Exposure: No (10/28/2016 20:00:Danitza Del Castillo RN) Inf Hx Hepatitis B,C: No (10/28/2016 20:00:Danitza Del Castillo RN) Inf Hx Rash or Viral Illness: No (10/28/2016 20:00:Danitza Del Castillo RN) GENETIC HISTORY Gen Hx Age >=35 at LASHAWN: No (10/28/2016 20:00:Danitza Del Castillo RN) Gen Hx Thalassemia: No (10/28/2016 20:00:Danitza Del Castillo RN) Gen Hx Congenital Heart Defect: No (10/28/2016 20:00:Danitza Del Castillo RN) Gen Hx Neural Tube Defect: No (10/28/2016 20:00:Danitza Del Castillo RN) Gen Hx Down's Syndrome: No (10/28/2016 20:00:Danitza Del Castillo RN) Gen Hx Campbell-Sachs: No (10/28/2016 20:00:Danitza Del Castillo RN) Gen Hx Lazara: No (10/28/2016 20:00:Danitza Del Castillo RN) Gen Hx Familial Dysautonomia: No (10/28/2016 20:00:Danitza Del Castillo RN) Gen Hx Sickle Cell Disease/Trait: No (10/28/2016 20:00:Danitza Del Castillo RN) Gen Hx Hemophilia/Blood Disorder: No (10/28/2016 20:00:Danitza Del Castillo RN) Gen Hx Muscular Dystrophy: No (10/28/2016 20:00:Danitza Del Castillo RN) Gen Hx Cystic Fibrosis: No (10/28/2016 20:00:Danitza Del Castillo RN) Gen Hx Huntingtons Chorea: No (10/28/2016 20:00:Danitza Del Castillo RN) Gen Hx Mental Retardation/Autism: No (10/28/2016 20:00:Danitza Del Castillo RN) Gen Hx Tested for Fragile X: No (10/28/2016 20:00:Danitza Del Castillo RN) Gen Hx Other Inher/Chromosomal: No (10/28/2016 20:00:Danitza Del Castillo RN) Gen Hx Maternal Metabolic DO: No (10/28/2016 20:00:Danitza Del Castillo RN) Gen Hx Pt Father or FOB Defect: No (10/28/2016 20:00:Danitza Del Castillo RN) Gen Hx Other Genetic History: No (10/28/2016 20:00:Danitza Del Castillo RN) Gen Hx Drugs/Meds since LMP: Yes (10/28/2016 20:00:Danitza Del Castillo RN) Gen Hx Medications: vitamins (10/28/2016 20:00:Danitza Del Castillo RN)
--- NOTE | 2016-11-05 04:49 | L&D Discharge Summary ---
OB Discharge Summary Datetime Report Generated by CPN: 11/05/2016 04:46 DISCHARGE DIAGNOSIS Diagnosis/Symptoms: Reassuring Surveillance - Annotate Details Diagnoses/Symptoms Other: IUP, 38.2, Reactive NST Gestation: 38.2 Number of Babies in Womb: 1 Parity: 0 DIET/ACTIVITY/RESTRICTIONS Diet: Regular Activity: Normal Activity TEACHING/INSTRUCTIONS/REFERRALS Instructions Given To: Patient Instructions Understood: Patient Verbalized Understanding; Support Person Verbalized Understanding Referrals: None Educational Materials- Other: [employer] DISCHARGE INFORMATION Discharged AMA: No Discharge Date/Time: 11/04/2016 19:01 Discharged To: Home Discharge Provider Name: Faisal Paz CNM Accompanied By: self Discharge Method: Ambulatory Condition: Stable FOLLOW UP INFORMATION Follow Up With: [email or web address] Follow Up On: As Scheduled Follow Up Phone Number: [email or web address] - Comments: Discussed NST and signs and symptoms of when to return to office or hospital with patient and significant other. Both, patient and significant other, verbalized understanding. Patient discharged home for reactive NST via ambulation in stable condition. GENERAL INSTR-CALL PROVIDER IF: Contractions: Regular painful contractions every 5 minutes or less for one hour. Time your contractions from the beginning of one to the beginning of the next Pressure: Pressure in your vagina or lower abdomen that may feel like the baby is pushing down Period Like Cramps: Period-like cramps or low dull backache that may come and go Cramps/Diarrhea: Abdominal cramps that may be accompanied by diarrhea Gush of Fluid/Blood: Gush of fluid or blood from your vagina (it is normal to have spotting after vaginal exam or intercourse) Vaginal Discharge: Change in the type or amount of vaginal discharge Decreased Movement: Your baby is not moving as much as usual- 4 movements in 1 hour after drinking and resting on side Temperature: Temperature greater than 100.0(F) orally
--- NOTE | 2016-11-05 04:49 | L&D Flow Sheet ---
LD Flowsheet Datetime Report Generated by CPN: 11/05/2016 04:46 Datetime: 11/04/2016 18:48 NBP Sys/Violet/Mean (mmHg): 124 (QS system process) : 59 (QS system process) : 78 (QS system process) Pulse: 89 (QS system process) LaborFlag: Labor (QS system process) Datetime: 11/04/2016 18:32 Communication: RN at Bedside; RN Reviewed Strip (Nini Broman, RN) Datetime: 11/04/2016 18:29 Patient Position/Activity: HOB Lowered; Left Lateral (Nini Broman, RN) I/O Interventions: Popsicle; Clear Liquids Given (Nini Broman, RN) Datetime: 11/04/2016 18:28 NBP Sys/Violet/Mean (mmHg): 112 (QS system process) : 58 (QS system process) : 78 (QS system process) Pulse: 98 (QS system process) Comments: positioned off back to left side (Isela Camp, RNC) LaborFlag: Labor (QS system process)
--- NOTE | 2016-11-05 10:49 | L&D Discharge Summary ---
OB Discharge Summary Datetime Report Generated by CPN: 11/05/2016 10:45 DISCHARGE DIAGNOSIS Diagnosis/Symptoms: Reassuring Surveillance - Annotate Details Diagnoses/Symptoms Other: IUP, 38.2, Reactive NST Gestation: 38.2 Number of Babies in Womb: 1 Parity: 0 DIET/ACTIVITY/RESTRICTIONS Diet: Regular Activity: Normal Activity TEACHING/INSTRUCTIONS/REFERRALS Instructions Given To: Patient Instructions Understood: Patient Verbalized Understanding; Support Person Verbalized Understanding Referrals: None Educational Materials- Other: [employer] DISCHARGE INFORMATION Discharged AMA: No Discharge Date/Time: 11/04/2016 19:01 Discharged To: Home Discharge Provider Name: Faisal Paz CNM Accompanied By: self Discharge Method: Ambulatory Condition: Stable FOLLOW UP INFORMATION Follow Up With: [employer] Follow Up On: As Scheduled Follow Up Phone Number: [employer] - Comments: Discussed NST and signs and symptoms of when to return to office or hospital with patient and significant other. Both, patient and significant other, verbalized understanding. Patient discharged home for reactive NST via ambulation in stable condition. GENERAL INSTR-CALL PROVIDER IF: Contractions: Regular painful contractions every 5 minutes or less for one hour. Time your contractions from the beginning of one to the beginning of the next Pressure: Pressure in your vagina or lower abdomen that may feel like the baby is pushing down Period Like Cramps: Period-like cramps or low dull backache that may come and go Cramps/Diarrhea: Abdominal cramps that may be accompanied by diarrhea Gush of Fluid/Blood: Gush of fluid or blood from your vagina (it is normal to have spotting after vaginal exam or intercourse) Vaginal Discharge: Change in the type or amount of vaginal discharge Decreased Movement: Your baby is not moving as much as usual- 4 movements in 1 hour after drinking and resting on side Temperature: Temperature greater than 100.0(F) orally
--- NOTE | 2016-11-05 10:49 | L&D General Admission ---
General Admit Datetime Report Generated by CPN: 11/05/2016 10:45 INFORMATION Patient Age: 21 (10/28/2016 19:41:QS system process) EDC: 11/16/2016 00:00 (10/28/2016 20:00:Danitza Del Castillo RN) : 1 (10/28/2016 20:00:Danitza Del Castillo RN) Para: 0 (10/28/2016 20:00:Danitza Del Castillo RN) Term: 0 (10/28/2016 20:00:Cynthia Mcpherson RN) : 0 (10/28/2016 20:00:Cynthia Mcpherson RN) Spontaneous Abortions: 0 (10/28/2016 20:00:Cynthia Mcpherson RN) Induced Abortions: 0 (10/28/2016 20:00:Cynthia Mcpherson RN) Livin (10/28/2016 20:00:Cynthia Mcpherson RN) Cesareans: 0 (10/28/2016 20:00:Cynthia Mcpherson RN) VBACs: 0 (10/28/2016 20:00:Cynthia Mcpherson RN) Ectopic: 0 (10/28/2016 20:00:Cynthia Mcpherson RN) Multiple Births: 0 (10/28/2016 20:00:Cynthia Mcpherson RN) Baby, Number in Womb: 1 (10/28/2016 20:00:Cynthia Mcpherson RN) CARE Primary Civil Engineer'S Aide: [facility] (10/28/2016 20:00:Danitza Del Castillo RN) Adequate Care: Yes (10/28/2016 20:00:Danitza Del Castillo RN) Height (in): 61 (10/28/2016 20:12:QS system process) ALLERGIES Medication Allergy: No (10/28/2016 20:00:Danitza Del Castillo RN) Medication Allergies: No Known Allergies (10/28/2016) (10/28/2016 20:10:QS system process) Medication Allergies: N/A (10/28/2016 20:00:Danitza Del Castillo RN) Latex Allergy: No Latex Allergies (10/28/2016 20:00:Danitza Del Castillo RN) Food Allergies: N/A (10/28/2016 20:00:Danitza Del Castillo RN) Environmental Allergies: N/A (10/28/2016 20:00:Danitza Del Castillo RN) COMMUNICATION Primary Language: Costa Rican (10/28/2016 20:00:Danitza Del Castillo RN) Medical Tx Preferred Language: [place]ican (10/28/2016 20:00:Danitza Del Castillo RN) Communication Barrier(s): None (10/28/2016 20:00:Danitza Del Castillo RN) DEMOGRAPHICS Address: [address] [place] [id number] (10/28/2016 19:41:QS system process) Zipcode: [address] (10/28/2016 19:41:QS system process) Home (10/28/2016 19:41:QS system process) N: [id number] (10/28/2016 19:41:QS system process) Next of Kin Name: SOCORRO SANCHEZ (10/28/2016 19:41:QS system process) Next of Kin (10/28/2016 19:41:QS system process) Next of Kin Relationship: OR (10/28/2016 19:41:QS system process) Date of : 1995 (10/28/2016 19:41:QS system process) Marital Status: Single (10/28/2016 19:41:QS system process) Sex: Female (10/28/2016 19:41:QS system process) Race: (10/28/2016 19:41:QS system process) Ethnicity: Non- or (10/28/2016 19:41:QS system process) Worship: None (10/28/2016 19:41:QS system process) FOB Involved: Yes (10/28/2016 20:00:Danitza Del Castillo RN) Father of Baby Name: Socorro Snachez (10/28/2016 20:00:Danitza Del Castillo RN) DRUG AND ALCOHOL USE Alcohol: No (10/28/2016 20:00:Danitza Del Castillo RN) Cigarettes: Former Smoker. [id number] (10/28/2016 20:00:Danitza Del Castillo RN) Marijuana: No (10/28/2016 20:00:Danitza Del Castillo RN) Cocaine: No (10/28/2016 20:00:Danitza Del Castillo RN) Other Illicit Drugs: No (10/28/2016 20:00:Danitza Del Castillo RN) VACCINE HISTORY Influenza Vaccine: No (10/28/2016 20:00:Danitza Del Castillo RN) Pneumococcal Vaccine: No (10/28/2016 20:00:Danitza Del Castillo RN) Tetanus Vaccine: No (10/28/2016 20:00:Danitza Del Castillo RN) Tdap Vaccine: No (10/28/2016 20:00:Danitza Del Castillo RN) Hepatitis B Vaccine: No (10/28/2016 20:00:Danitza Del Castillo RN) Feeding Preference: Breast (10/28/2016 20:00:Danitza Del Castillo RN) Benefit of Breast Feed Discussed: Yes (10/28/2016 20:00:Danitza Del Castillo RN) Circumcision: Yes (10/28/2016 20:00:Danitza Del Castillo RN) Classes Attended: No (10/28/2016 20:00:Danitza Del Castillo RN) Tubal Ligation: No (10/28/2016 20:00:Danitza Del Castillo RN) Tubal Authorization Signed: N/A (10/28/2016 20:00:Danitza Del Castillo RN) Consent: N/A (10/28/2016 20:00:Danitza Del Castillo RN) Consent Signed: N/A (10/28/2016 20:00:Danitza Del Castillo RN) Pain Management Plans: Epidural (10/28/2016 20:00:Danitza Del Castillo RN) Plans for Labor and Delivery: None (10/28/2016 20:00:Danitza Del Castillo RN) Support Person: Socorro Sanchez (10/28/2016 20:00:Danitza Del Castillo RN) Support Person Relationship: Significant Other (10/28/2016 20:00:Danitza Del Castillo RN) Cultural/Spritual Practice: No (10/28/2016 20:00:Danitza Del Castillo RN) Spir/Cult Dietary Needs: No (10/28/2016 20:00:Danitza Del Castillo RN) LIVING SITUATION/DISCHARGE PLAN Living Arrangements: Apartment (10/28/2016 20:00:Danitza Del Castillo RN) Adequate Access to:: Electric; Heat; Refrigeration; Plumbing/Running water; Phone; Transportation (10/28/2016 20:00:Danitza Del Castillo RN) WIC Program: No (10/28/2016 20:00:Danitza Del Castillo RN) Discharge Beck Tender Person: Socorro Sanchez (10/28/2016 20:00:Danitza Del Castillo RN) Person to Help after Discharge: Socorro Sanchez (10/28/2016 20:00:Danitza Del Castillo RN) Currently Using Commun Resources: No (10/28/2016 20:00:Danitza Del Castillo RN) Outside Agency/[facility]: No (10/28/2016 20:00:Danitza Del Castillo RN) Car Seat for Discharge: Yes (10/28/2016 20:00:Danitza Del Castillo RN) Adoption Requested: No (10/28/2016 20:00:Danitza Del Castillo RN) Pt Contact w/ Post : N/A (10/28/2016 20:00:Danitza Del Castillo RN) OB/PREVIOUS HISTORY Current Procedures: Ultrasound; NST (10/28/2016 20:00:Danitza Del Castillo RN) History of Previous : No (10/28/2016 20:00:Danitza Del Castillo RN) History of Gestational Diabetes: Yes (10/28/2016 20:00:Danitza Del Castillo RN) History of PIH: No (10/28/2016 20:00:Danitza Del Castillo RN) History of Incompetent Cervix: No (10/28/2016 20:00:Danitza Del Castillo RN) History of Placenta Previa/Abrup: No (10/28/2016 20:00:Danitza Del Castillo RN) History of Macrosomia: No (10/28/2016 20:00:Danitza Del Castillo RN) History of IUGR: No (10/28/2016 20:00:Danitza Del Castillo RN) History of Hemorrhage: No (10/28/2016 20:00:Danitza Del Castillo RN) History of Loss/Stillborn: No (10/28/2016 20:00:Danitza Del Castillo RN) History of : No (10/28/2016 20:00:Danitza Del Castillo RN) History of D (Rh) Sensitization: No (10/28/2016 20:00:Danitza Del Castillo RN) History Recurrent Loss/Stillborn: No (10/28/2016 20:00:Danitza Del Castillo RN) History Depression/PP Depression: No (10/28/2016 20:00:Danitza Del Castillo RN) History of Uterine Anomaly/JAVI: No (10/28/2016 20:00:Danitza Del Castillo RN) History of Infertility: No (10/28/2016 20:00:Danitza Del Castillo RN) History of ART Treatment: No (10/28/2016 20:00:Danitza Del Castillo RN) History of JAVI: No (10/28/2016 20:00:Danitza Del Castillo RN) Comments Obstetrical History: G1 - Current (10/28/2016 20:00:Danitza Del Castillo RN) MEDICAL HISTORY Med Hx Diabetes: Yes (10/28/2016 20:00:Danitza Del Castillo RN) Diabetes Type: Gestational Diabetes (10/28/2016 20:00:Danitza Del Castillo RN) Med Hx Hypertension: No (10/28/2016 20:00:Danitza Del Castillo RN) Med Hx Heart Disease: No (10/28/2016 20:00:Danitza Del Castillo RN) Med Hx Autoimmune Disorder: No (10/28/2016 20:00:Danitza Del Castillo RN) Med Hx Kidney Disease/UTI: No (10/28/2016 20:00:Danitza Del Castillo RN) Med Hx Neurologic/Epilepsy: No (10/28/2016 20:00:Danitza Del Castillo RN) Med Hx Psychiatric Disorders: No (10/28/2016 20:00:Danitza Del Castillo RN) Med Hx Hepatitis/Liver Disease: No (10/28/2016 20:00:Danitza Del Castillo RN) Med Hx Varicosities/Phlebitis: No (10/28/2016 20:00:Danitza Del Castillo RN) Med Hx Thyroid Dysfunction: No (10/28/2016 20:00:Danitza Del Castillo RN) Med Hx Trauma/Violence: No (10/28/2016 20:00:Danitza Del Castillo RN) Med Hx Blood Transfusion: No (10/28/2016 20:00:Danitza Del Castillo RN) Med Hx Pulmonary (Asthma,TB): No (10/28/2016 20:00:Danitza Del Castillo RN) Med Hx Breast: No (10/28/2016 20:00:Danitza Del Castillo RN) Med Hx RESPOOLER Surgery: No (10/28/2016 20:00:Danitza Del Castillo RN) Med Hx Hospitalization/Surgery: No (10/28/2016 20:00:Danitza Del Castillo RN) Med Hx Anesthetic Complications: No (10/28/2016 20:00:Danitza Del Castillo RN) Med Hx Abnormal Pap Smear: No (10/28/2016 20:00:Danitza Del Castillo RN) Other Medical Diseases: No (10/28/2016 20:00:Danitza Del Castillo RN) Med Hx Significant Family Hx: No (10/28/2016 20:00:Danitza Del Castillo RN) INFECTIOUS HISTORY Inf Hx Gonorrhea: No (10/28/2016 20:00:Danitza Del Castillo RN) Inf Hx Chlamydia: No (10/28/2016 20:00:Danitza Del Castillo RN) Inf Hx Syphilis: No (10/28/2016 20:00:Danitza Del Castillo RN) Inf Hx HIV/AIDS: No (10/28/2016 20:00:Danitza Del Castillo RN) Inf Hx Human Papilloma Virus: No (10/28/2016 20:00:Danitza Del Castillo RN) Inf Hx Pt/Partner Genital Herpes: No (10/28/2016 20:00:Danitza Del Castillo RN) Inf Hx Tuberculosis/Exposure: No (10/28/2016 20:00:Danitza Del Castillo RN) Inf Hx Hepatitis B,C: No (10/28/2016 20:00:Danitza Del Castillo RN) Inf Hx Rash or Viral Illness: No (10/28/2016 20:00:Danitza Del Castillo RN) GENETIC HISTORY Gen Hx Age >=35 at LASHAWN: No (10/28/2016 20:00:Danitza Del Castillo RN) Gen Hx Thalassemia: No (10/28/2016 20:00:Danitza Del Castillo RN) Gen Hx Congenital Heart Defect: No (10/28/2016 20:00:Danitza Del Castillo RN) Gen Hx Neural Tube Defect: No (10/28/2016 20:00:Danitza Del Castillo RN) Gen Hx Down's Syndrome: No (10/28/2016 20:00:Danitza Del Castillo RN) Gen Hx Campbell-Sachs: No (10/28/2016 20:00:Danitza Del Castillo RN) Gen Hx Lazara: No (10/28/2016 20:00:Danitza Del Castillo RN) Gen Hx Familial Dysautonomia: No (10/28/2016 20:00:Danitza Del Castillo RN) Gen Hx Sickle Cell Disease/Trait: No (10/28/2016 20:00:Danitza Del Castillo RN) Gen Hx Hemophilia/Blood Disorder: No (10/28/2016 20:00:Danitza Del Castillo RN) Gen Hx Muscular Dystrophy: No (10/28/2016 20:00:Danitza Del Castillo RN) Gen Hx Cystic Fibrosis: No (10/28/2016 20:00:Danitza Del Castillo RN) Gen Hx Huntingtons Chorea: No (10/28/2016 20:00:Danitza Del Castillo RN) Gen Hx Mental Retardation/Autism: No (10/28/2016 20:00:Danitza Del Castillo RN) Gen Hx Tested for Fragile X: No (10/28/2016 20:00:Danitza Del Castillo RN) Gen Hx Other Inher/Chromosomal: No (10/28/2016 20:00:Danitza Del Castillo RN) Gen Hx Maternal Metabolic DO: No (10/28/2016 20:00:Danitza Del Castillo RN) Gen Hx Pt Father or FOB Defect: No (10/28/2016 20:00:Danitza Del Castillo RN) Gen Hx Other Genetic History: No (10/28/2016 20:00:Danitza Del Castillo RN) Gen Hx Drugs/Meds since LMP: Yes (10/28/2016 20:00:Danitza Del Castillo RN) Gen Hx Medications: vitamins (10/28/2016 20:00:Danitza Del Castillo RN)
--- NOTE | 2016-11-05 10:49 | Antepartum Discharge Summary ---
Antepartum DC Datetime Report Generated by CPN: 11/05/2016 10:45 Diet: Regular (11/04/2016 19:01:Nini Rogers RN) Activity: Normal Activity (11/04/2016 19:01:Nini Rogers RN) Instructions Given To: Patient (11/04/2016 19:01:Nini Rogers RN) Instructions Understood: Patient Verbalized Understanding; Support Person Verbalized Understanding (11/04/2016 19:01:Nini Rogers RN) Referrals: None (11/04/2016 19:01:Nini Rogers RN) Educational Materials- Other: Kick Counts (11/04/2016 19:01:Nini Rogers RN) Discharged AMA: No (11/04/2016 19:01:Nini Rogers RN) Discharge Date/Time: 11/04/2016 19:01 (11/04/2016 19:01:Nini Rogers RN) Discharged To: Home (11/04/2016 19:01:Nini Rogers RN) Discharge Provider Name: Faisal Paz CNM (11/04/2016 19:01:Nini Rogers RN) Accompanied By: self (11/04/2016 19:01:Nini Rogers RN) Discharge Method: Ambulatory (11/04/2016 19:01:Nini Rogers RN) Condition: Stable (11/04/2016 19:01:Nini Rogers RN) Follow Up With: [facility] (11/04/2016 19:01:Nini Rogers RN) Follow Up On: As Scheduled (11/04/2016 19:01:Nini Rogers RN) Follow Up Phone Number: [facility] - (11/04/2016 19:01:Nini Rogers RN) Contractions: Regular painful contractions every 5 minutes or less for one hour. Time your contractions from the beginning of one to the beginning of the next (11/04/2016 19:01:Nini Rogers RN) Pressure: Pressure in your vagina or lower abdomen that may feel like the baby is pushing down (11/04/2016 19:01:Nini Rogers RN) Gush of Fluid/Blood: Gush of fluid or blood from your vagina (it is normal to have spotting after vaginal exam or intercourse) (11/04/2016 19:01:Nini Rogers RN) Vaginal Discharge: Change in the type or amount of vaginal discharge (11/04/2016 19:01:Nini Rogers RN) Decreased Movement: Your baby is not moving as much as usual- 4 movements in 1 hour after drinking and resting on side (11/04/2016 19:01:Nini Rogers RN) Urinary Output: Decreased urinary output or dark colored urine (11/04/2016 19:01:Nini Rogers RN)
== END 2016-11-04 19:01 | disposition home or self-care (01) ==
LOC: LC 18:11
PROVIDERS: ATTEND Obstetrics & Gynecology
PROC: 4A1HXCZ Monitoring of Products of Conception, Cardiac Rate, External Approach (ICD-10-PCS; principal; 2016-11-04)
DX: O24.419 Gestational diabetes mellitus in pregnancy, unspecified control (principal); Z3A.38 38 weeks gestation of pregnancy
CPT/HCPCS: 59025

== ENCOUNTER 2016-11-11 16:10 | Outpatient (CLI) | payer OTHER ==
--- NOTE | 2016-11-11 17:03 | Non Stress Test Report ---
Non Stress Test Datetime Report Generated by CPN: 11/11/2016 17:03 DEMOGRAPHIC EGA NST: 39.2 INDICATION Indication for Study: Diabetes Mellitus; Ordered by Provider MONITORING Monitor Explained: Monitor Explained; Test Explained; Patient Verbalized Understanding Time on Monitor: 11/11/2016 16:29 Time off Monitor: 11/11/2016 17:01 NST Duration: 32 NST INTERVENTIONS NST Interventions: PO Hydration; Reposition Patient Physician Notified NST: J. Goss, CNM BABY A Movement : Present Contraction Frequency : occ FHR Baseline : 140 Accelerations : 15X15 Decelerations : None Variability : Moderate 6-25bpm NST Review: Meets Criteria for Reactive NST NST Review and Verified By : TIP Saldana Results: Reactive NST REPORT Report Trigger: Send Report
== END 2016-11-11 17:05 | disposition home or self-care (01) ==
LOC: LC 16:10
PROVIDERS: ATTEND Obstetrics & Gynecology
PROC: 4A1HXCZ Monitoring of Products of Conception, Cardiac Rate, External Approach (ICD-10-PCS; principal; 2016-11-11)
DX: O24.419 Gestational diabetes mellitus in pregnancy, unspecified control (principal); Z3A.39 39 weeks gestation of pregnancy
CPT/HCPCS: 59025

== ENCOUNTER 2016-11-16 17:08 | Outpatient (CLI) | payer OTHER ==
[2016-11-16] MEDS ORDERED: RINGERS SOLUTION,LACTATED 1,000 ML IV PRN (19:17)
[2016-11-16] MEDS ORDERED: RINGERS SOLUTION,LACTATED 1,000 ML IV ONE (19:17)
== END 2016-11-16 19:39 | disposition home or self-care (01) ==
LOC: LC 17:08
PROVIDERS: ATTEND Specialist
DX: O62.9 Abnormality of forces of labor, unspecified (principal); Z3A.40 40 weeks gestation of pregnancy
CPT/HCPCS: 59020; 59025

== ENCOUNTER 2016-11-18 14:37 | Inpatient (IN) | payer OTHER ==
[2016-11-18 15:51] LABS: URINE BARBITURATES SCREEN NEGATIVE; URINE METHADONE SCREEN NEGATIVE; URINE OPIATES LOW NEGATIVE; URINE PHENCYCLIDINE SCREEN NEGATIVE
[2016-11-18] MEDS ORDERED: RINGERS SOLUTION,LACTATED 1,000 ML IV PRN (16:35)
[2016-11-18] MEDS ORDERED: DINOPROSTONE 10 MG VAGINAL INSERT.SR PV PRN (16:39)
[2016-11-18 17:09] LABS: ABSOLUTE EOSINOPHILS # (AUTO) 0.1 10^3/uL (0.0-0.6); ABSOLUTE LYMPHOCYTES (AUTO) 1.6 10^3/uL (0.5-4.7); ABSOLUTE MONOCYTES (AUTO) 0.6 10^3/uL (0.1-1.4); ABSOLUTE NEUT (AUTO) 9.2 10^3/uL (1.7-8.2); BASOPHILS % (AUTO) 0.2 % (0-2); EOSINOPHILS % (AUTO) 0.6 % (0-6); HEMATOCRIT 29.4 % (36.0-47.0); HEMOGLOBIN 9.7 g/dL (12.0-15.5); HGB HCT DIFFERENCE -0.3; LYMPHOCYTES % (AUTO) 13.7 % (13-45); MEAN CORPUSCULAR HEMOGLOBIN 26.4 pg (27.0-33.4); MEAN CORPUSCULAR HGB CONC 33.1 g/dL (32.0-36.0); MEAN CORPUSCULAR VOLUME 80 fl (80-97); MONOCYTES % (AUTO) 5.5 % (3-13); RED BLOOD COUNT 3.68 10^6/uL (3.72-5.28); RED CELL DISTRIBUTION WIDTH 15.3 % (11.5-14.0); WHITE BLOOD COUNT 11.5 10^3/uL (4.0-10.5)
[2016-11-18] MEDS ORDERED: MISOPROSTOL 0.1 MG TABLET ONE ×2 (17:52→22:31)
[2016-11-18 18:15] LABS: APPEARANCE,URINE CLEAR; BILIRUBIN,URINE NEGATIVE (NEGATIVE); GLUCOSE, URINE NEGATIVE (NEGATIVE); KETONES,URINE NEGATIVE (NEGATIVE); LEUKOCYTE ESTERASE,URINE NEGATIVE (NEGATIVE); NITRITE,URINE NEGATIVE (NEGATIVE); PROTEIN,URINE NEGATIVE (NEGATIVE); UROBILINOGEN,URINE NEGATIVE mg/dL (<2.0)
[2016-11-18] MEDS ORDERED: MISOPROSTOL 0.1 MG TABLET PO SCH (22:30)
[2016-11-18] MEDS ORDERED: MISOPROSTOL 0.1 MG TABLET PV SCH (22:30)
[2016-11-19] MEDS ORDERED: OXYTOCIN/NORMAL SALINE 1,000 ML IV PRN ×2 (02:57→15:21)
[2016-11-19] MEDS ORDERED: ONDANSETRON HCL 8 MG TABLET ONE (03:02)
[2016-11-19] MEDS ORDERED: OXYTOCIN/NORMAL SALINE 20 UNIT/1,000 ML RTUINJ ONE ×2 (03:02→14:16)
[2016-11-19] MEDS ORDERED: NALBUPHINE HCL INJ 10 MG/1 ML AMPULE ONE (03:02)
[2016-11-19] MEDS ORDERED: ONDANSETRON HCL 8 MG TABLET PO ONE (03:15)
[2016-11-19] MEDS ORDERED: NALBUPHINE HCL INJ 10 MG/1 ML AMPULE INJ ONE (03:15)
[2016-11-19] MEDS ORDERED: EPHEDRINE SULFATE INJ 50 MG/1 ML AMPULE IV PRN (04:21)
[2016-11-19] MEDS ORDERED: EPHEDRINE SULFATE INJ 50 MG/1 ML AMPULE IV ONE (04:21)
[2016-11-19] MEDS ORDERED: BUPIVACAINE HCL 0.25 % INJ/PF (2.5 MG/1 ML) 30 ML VIAL INFIL ONE (04:21)
[2016-11-19] MEDS ORDERED: BENZOIN/ALOE VERA/STORAX/TOLU TINCTURE 60 ML TP PRN (04:21)
[2016-11-19] MEDS ORDERED: FENTANYL/BUPIVACAINE/NS/PF 100 ML EPI PRN (04:21)
[2016-11-19] MEDS ORDERED: EPHEDRINE SULFATE INJ 50 MG/1 ML AMPULE ONE (04:29)
[2016-11-19] MEDS ORDERED: BUPIVACAINE HCL 0.25 % INJ/PF (2.5 MG/1 ML) 30 ML VIAL ONE (04:29)
[2016-11-19] MEDS ORDERED: FENTANYL/BUPIVACAINE/NS/PF 200 MCG/100 ML RTUINJ EPI ONE (04:29)
[2016-11-19] MEDS ORDERED: MISOPROSTOL 0.2 MG TABLET ONE ×2 (07:55→14:47)
[2016-11-19] MEDS ORDERED: LIDOCAINE 1% INJ-PF (10 MG/ML) 30 ML SDV ONE (07:56)
[2016-11-19] MEDS ORDERED: ACETAMINOPHEN 325 MG TABLET ONE (11:51)
[2016-11-19] MEDS ORDERED: LIDOCAINE 2% INJ-PF (20 MG/ML) 10 ML AMPUL ONE (12:47)
[2016-11-19] MEDS ORDERED: CEFAZOLIN 2 GM/D5W RTU 2 GM/50 ML RTUPB IV ONE (14:02)
[2016-11-19] MEDS ORDERED: CITRIC ACID/SODIUM CITRATE ORAL SOLN 15 ML UDCUP ONE (14:02)
[2016-11-19] MEDS ORDERED: OXYTOCIN 10 UNIT/ML VIAL ONE (14:16)
[2016-11-19] MEDS ORDERED: MIDAZOLAM 2 MG/2 ML INJ ONE (14:17)
[2016-11-19] MEDS ORDERED: FENTANYL CITRATE INJ/PF 100 MCG/2 ML AMPUL ONE (14:17)
[2016-11-19] MEDS ORDERED: ACETAMINOPHEN 100 ML IV PRN (15:21)
[2016-11-19] MEDS ORDERED: ACETAMINOPHEN 325 MG TABLET PO PRN (15:21)
[2016-11-19] MEDS ORDERED: PROMETHAZINE HCL INJ 25 MG/1 ML VIAL IV PRN (15:21)
[2016-11-19] MEDS ORDERED: MEASLES,MUMPS&RUBELLA VACC/PF 0.5 ML VIAL SUBCUT PRN (15:21)
[2016-11-19] MEDS ORDERED: DIPH/PERTUSS(ACELL)/TETANUS VAC/PF 0.5 ML SYR (>=10YO) IM PRN (15:21)
[2016-11-19] MEDS ORDERED: SIMETHICONE 80 MG TAB.CHEW PO PRN (15:21)
[2016-11-19] MEDS ORDERED: ACETAMINOPHEN 100 ML IV ONE (15:28)
[2016-11-19] MEDS ORDERED: ONDANSETRON HCL INJ/PF 4 MG/2 ML SDV ONE (15:45)
[2016-11-19] MEDS ORDERED: METOCLOPRAMIDE HCL INJ/PF 10 MG/2 ML SDV ONE (15:45)
[2016-11-19] MEDS ORDERED: KETOROLAC TROMETHAMINE 60 MG/2 ML SDV ONE (15:45)
--- NOTE | 2016-11-19 15:48 | OPERATIVE REPORT E ---
Operative Report NAME: BARNEY LARSON : 1995 AGE: 21Y DATE OF SURGERY: 11/19/2016 ROOM: LR200 PREOPERATIVE DIAGNOSES: 1. Intrauterine at 40 weeks 2 days. 2. Failure to progress. 3. Cephalopelvic disproportion. POSTOPERATIVE DIAGNOSES: 1. Intrauterine at 40 weeks 2 days. 2. Failure to progress. 3. Cephalopelvic disproportion. OPERATION: Low transverse hysterotomy section. SURGEON: STU PIKE M.D. ANESTHESIA: CARRIE SAINI M.D. with an epidural. FINDINGS: A male infant in cephalic presentation well wedged in the vaginal canal, weight of 9 pounds 9 ounces, Apgars 9 at one minute and 9 at five minutes. No extensions of the hysterotomy into the vaginal sidewalls thankfully. ESTIMATED BLOOD LOSS: 600 mL. SPECIMENS REMOVED: None. PROCEDURE IN DETAIL: The patient was taken to the operating room, prepared and draped in a normal sterile fashion in a supine position with a leftward tilt. A transverse skin incision was made with a scalpel and carried through to the underlying layer of fascia with the same scalpel. Fascia was excised in the midline, extended bilaterally with Gunderson. The fascia was then dissected sharply from the rectus muscle using the Gunderson. Rectus muscle was divided, and the peritoneal cavity was entered sharply with Metzenbaum. Peritoneal cavity was divided with surgeon's finger fracture, good visualization of the bladder and the uterus. The bladder blade was inserted. The hysterotomy was nicked in the center with a scalpel, and the hysterotomy was then extended laterally with surgeon finger fracture. The 's head was then lifted by the surgeon's hand out of the vaginal pelvis and up further into the uterus, and the was then delivered carefully through the hysterotomy and the skin incisions without difficulty. The cord was clamped and cut. The was handed off to waiting pediatricians, and cord blood was collected. The placenta was removed manually. The uterus was exteriorized and cleared of clots and debris. The hysterotomy was inspected carefully and found to have no extensions into the vagina. The hysterotomy was then closed with 0 Monocryl in a running locked fashion. A second layer of the same suture was used to imbricate to insure hemostasis. The uterus was then returned to the abdomen, and hysterotomy was reinspected and found to be hemostatic. The peritoneal cavity was cleared of clots and debris. The rectus muscle and peritoneum were reapproximated with 2-0 chromic mattress stitch. Another interrupted chromic stitch was placed to insure the rectus muscle reapproximation more carefully. The fascia was then closed with 0 Vicryl. The subcutaneous layer was closed with plain catgut, and the skin was closed with 4-0 Vicryl. The patient tolerated the procedure well. Sponge, lap, and needle counts were correct x2. The patient was taken to PACU in stable condition. DICTATING PHYSICIAN: STU PIKE M.D. [id number] PHY#: [id number] ID: [id number] JOB#: [id number] ACCT: [id number] cc:STU PIKE M.D. >
--- NOTE | 2016-11-19 16:05 | Delivery Summary ---
Del Sum A-C Datetime Report Generated by CPN: 11/19/2016 16:05 DELIVERY PERSONNEL DELIVERY PERSONNEL: [id number] Delivery Doctor:: Genet Crabtree MD Anesthesiologist:: Elijah Barnett MD MASTER MOTORCYCLE TECHNICIAN:: Marylou Sullivan CRNA Labor and Delivery Nurse:: Nini Rogers RNdog or horse racing official Nurse:: RIC Rojas Nursery Nurse:: Shaylee Escalante RN Toll Bridge Attendant/CYLINDER INSPECTOR: ST Jil Toll Bridge Attendant/CYLINDER INSPECTOR: Estefania Wolf, INTERNATIONAL MARKETING SPECIALIST MATERNAL INFORMATION Delivery Anesthesia: Spinal Medications During Delivery: Cytotec 200 mcg SL Medications After Delivery: Pitocin Bolus-Please Comment Meds After Delivery Comment: Pitocin bolus 50 unit in or, 20 un infusing at this time in second bag Estimated Blood Loss (ml): 600 Maternal Complications: Other Other Maternal Complications: C/S for CPD LABOR SUMMARY EDC: 11/16/2016 00:00 No. Babies in Womb: 1 Labor Anesthesia: Epidural LABOR INFORMATION Reason for Induction: Post Dates; Maternal Diabetes Onset of Labor: 11/19/2016 05:30 Cervical Ripening Agents: Cytotec @ 0.05 mg PO/0.025 mg PV Oxytocin: Induction Group B Beta Strep: NEGATIVE Steroids Given: None Reason Steroids Not Administered: Not Applicable MEMBRANES Membranes Rupture Method: Spontaneous Rupture of Membranes: 11/19/2016 10:35 Length of Rupture (hr): 4.10 Amniotic Fluid Color: Clear Amniotic Fluid Amount: Small Amniotic Fluid Odor: Normal STAGES OF LABOR Stage 3 hr: 0 Stage 3 min: 1 Total Time in Labor hr: 9 Total Time in Labor min: 12 VAGINAL DELIVERY Episiotomy: None Laceration Extension: N/A Laceration Type: None Laceration Repair: Not Applicable CSECTION DELIVERY Primary Indication: Failure of Descent Other Secondary Indication: CPD CSection Urgency: Non-Scheduled CSection Incidence: Primary Labor: Labor Elective: Nonelective CSection Incision: Lower Uterine Transverse BABY A INFORMATION Delivery Date/Time: 11/19/2016 14:41 Method of Delivery: Born in Route : No : N/A Forceps: N/A Vacuum Extraction: N/A Shoulder Dystocia : No PRESENTATION/POSITION BABY A Presentation: Cephalic Cephalic Presentation: Vertex Breech Presentation: N/A PLACENTA INFORMATION BABY A Placenta Delivery Time : 11/19/2016 14:42 Placenta Method of Delivery: Spontaneous Placenta Status: Delivered SCORES BABY A Heart Rate 1 min: >100 bpm Resp Effort 1 min: Good Cry Reflex Irritability 1 min: Cough or Sneeze or Pulls Away Muscle Tone 1 min: Active Motion Color 1 min: Body [place], Extremities Blue Resuscitation Effort 1 min: Tactile Stimulation SCORE 1 MIN: 9 Heart Rate 5 min: >100 bpm Resp Effort 5 min: Good Cry Reflex Irritability 5 min: Cough or Sneeze or Pulls Away Muscle Tone 5 min: Active Motion Color 5 min: Body [place], Extremities Blue Resuscitation Effort 5 min: N/A SCORE 5 MIN: 9 INFANT INFORMATION BABY A Gestational Age at Delivery: 40.3 Gestational Status: Full Term- 39- 40.6 Weeks Outcome : Liveborn Condition : Stable Sex: Male IDENTIFICATION BABY A Verification Date/Time: 11/19/2016 14:45 ID Band Number: [id number] Mother's Name Verified: Yes Infant RN Verifying : Jayson Rogers RN Additional Verifying Personnel: DMarcelino Lirajessicamayur RN WEIGHT/LENGTH BABY A Birthweight (gm): 4320 Infant Weight (lb): 9 Weight (oz): 8 Length (in): 21.00 Length (cm): 53.34 CORD INFORMATION BABY A No. Cord Vessels: 3 Nuchal Cord : N/A Cord Blood Taken: Yes-For Storage (Mom's Blood type +) Suction: None ASSESSMENT BABY A Physical Findings at Delivery: Caput Succedaneum; Molding of the Head Respirations: Appears Normal Skin to Skin: Yes Multiple Punch Press Operator/ALS Called : Yes Care By: Jade Escalante RN/SN Zaid Transferred To: [facility]
[2016-11-19] MEDS: OXYCODONE-ACETAMINOPHEN 5-325 MG TABLET PO PRN ×2 (18:06→23:56)
[2016-11-19] MEDS: DOCUSATE SODIUM 100 MG CAPSULE PO SCH (18:47)
[2016-11-19] MEDS: IBUPROFEN 800 MG TABLET PO SCH ×2 (18:47→23:17)
[2016-11-19] MEDS: MORPHINE SULFATE 10 MG/ML INJ IV PRN (19:23)
[2016-11-19] MEDS: KETOROLAC TROMETHAMINE INJ/PF 30 MG/1 ML SDV IV SCH (21:26)
[2016-11-20] MEDS: MORPHINE SULFATE 10 MG/ML INJ IV PRN (02:20)
[2016-11-20] MEDS: OXYCODONE-ACETAMINOPHEN 5-325 MG TABLET PO PRN ×3 (04:40→21:19)
[2016-11-20] MEDS: IBUPROFEN 800 MG TABLET PO SCH ×3 (05:09→17:39)
[2016-11-20] MEDS: KETOROLAC TROMETHAMINE INJ/PF 30 MG/1 ML SDV IV SCH ×2 (05:51→14:05)
[2016-11-20 07:21] LABS: HEMATOCRIT 23.6 % (36.0-47.0); HGB HCT DIFFERENCE 0.4; MEAN CORPUSCULAR HEMOGLOBIN 26.7 pg (27.0-33.4); MEAN CORPUSCULAR HGB CONC 33.8 g/dL (32.0-36.0); MEAN CORPUSCULAR VOLUME 79 fl (80-97); RED BLOOD COUNT 2.99 10^6/uL (3.72-5.28); RED CELL DISTRIBUTION WIDTH 15.6 % (11.5-14.0); WHITE BLOOD COUNT 15.9 10^3/uL (4.0-10.5)
[2016-11-20] MEDS: PRENATAL VITAMIN W-O CA NO5/FE FUMARATE/FA CAPSULE PO SCH (09:07)
[2016-11-20] MEDS: DOCUSATE SODIUM 100 MG CAPSULE PO SCH ×2 (09:07→17:43)
--- NOTE | 2016-11-20 09:34 | PDOC PROGRESS REPORT ---
Subjective-OB Subjective: Post Delivery Day: 21 year old. Denies any needs at this time. Denies any dizziness or lightheadedness when ambulating. Physical Exam (OB) Vital Signs: Temp Pulse Resp BP Pulse Ox 98.0 F 104 H 16 126/59 H 98 11/20/16 07:45 11/20/16 07:45 11/20/16 07:45 11/20/16 07:45 11/20/16 07:45 Intake & Output 11/19/16 11/20/16 11/21/16 06:59 06:59 06:59 Intake Total 3050 Output Total 5325 Balance -2275 Weight 93.3 kg - Dressing Removed: No - op site Incision: Dressing - Lochia Lochia Amount: Scant < 10 ml Lochia Color: Rubra/Red - Abdomen Description: Soft, Round Hernia Present: No Bowel Sounds: Normoactive Flatus Presence: Present Stool: No Fundal Description: Firm, Midline Fundal Height: u/u - u/2 Objective-Diagnostic Laboratory: 11/20/16 06:48 11/20/16 06:48 WBC 15.9 H RBC 2.99 L Hgb 8.0 L Hct 23.6 L MCV 79 L MCH 26.7 L MCHC 33.8 RDW 15.6 H Plt Count 220
[2016-11-20] MEDS ORDERED: OXYCODONE HCL IR 5 MG TABLET ONE (14:25)
[2016-11-20] MEDS ORDERED: OXYCODONE HCL IR 5 MG TABLET PO ONE (17:00)
[2016-11-21] MEDS: OXYCODONE-ACETAMINOPHEN 5-325 MG TABLET PO PRN ×3 (03:28→15:51)
[2016-11-21] MEDS: IBUPROFEN 800 MG TABLET PO SCH ×5 (06:08→23:49)
--- NOTE | 2016-11-21 09:19 | PDOC PROGRESS REPORT ---
Subjective-OB Subjective: Post Delivery Day: 21 year old. Denies any needs at this time. Desires to stay one more day as still experiencing pain and wants to feel more comfortable with feeding. Physical Exam (OB) Vital Signs: Temp Pulse Resp BP Pulse Ox 97.9 F 96 18 131/64 H 100 11/21/16 03:31 11/21/16 03:31 11/21/16 03:31 11/21/16 03:31 11/21/16 03:31 Intake & Output 11/20/16 11/21/16 11/22/16 06:59 06:59 06:59 Intake Total 3050 650 Output Total 5325 Balance -2275 650 - Dressing Removed: No - op site Incision: Dressing - Lochia Lochia Amount: Scant < 10 ml Lochia Color: Rubra/Red - Abdomen Description: Tender, Soft Hernia Present: No Bowel Sounds: Normoactive Flatus Presence: Present Stool: No Fundal Description: Firm, Midline Fundal Height: u/u - u/2 Objective-Diagnostic Laboratory: 11/20/16 06:48
[2016-11-21] MEDS: DOCUSATE SODIUM 100 MG CAPSULE PO SCH ×2 (10:09→17:36)
[2016-11-21] MEDS: PRENATAL VITAMIN W-O CA NO5/FE FUMARATE/FA CAPSULE PO SCH (10:09)
[2016-11-22] MEDS ORDERED: DIBUCAINE 1% OINTMENT 28 GM PR PRN (01:31)
[2016-11-22] MEDS ORDERED: BISACODYL 10 MG SUPP.RECT PR ONE (02:00)
[2016-11-22] MEDS: OXYCODONE-ACETAMINOPHEN 5-325 MG TABLET PO PRN (06:26)
[2016-11-22] MEDS: IBUPROFEN 800 MG TABLET PO SCH (06:27)
--- NOTE | 2016-11-22 10:02 | PDOC PROGRESS REPORT ---
Subjective-OB Subjective: Post Delivery Day: 21 year old. Denies any needs at this time. Ready to go home. Physical Exam (OB) Vital Signs: Temp Pulse Resp BP Pulse Ox 98.2 F 102 H 18 133/80 H 95 11/22/16 04:19 11/22/16 04:19 11/22/16 04:19 11/22/16 04:19 11/22/16 04:19 Intake & Output 11/21/16 11/22/16 11/23/16 06:59 06:59 06:59 Intake Total 650 410 Balance 650 410 - Dressing Removed: No - op site Incision: Dressing Closure Type: opsite - Lochia Lochia Amount: Scant < 10 ml Lochia Color: Serosa/Brown - Abdomen Description: Soft Hernia Present: No Bowel Sounds: Normoactive Flatus Presence: Present Stool: Yes Fundal Description: Firm, Midline Fundal Height: u/u - u/2 Objective-Diagnostic Laboratory: 11/20/16 06:48
--- NOTE | 2016-11-22 10:09 | PDOC DISCHARGE SUMMARY ---
Final Diagnosis Discharge Date: 11/22/16 - Final Diagnosis (1) Delivery by emergency caesarean section Is this a current diagnosis for this admission?: Yes (2) GDM (gestational diabetes mellitus) Is this a current diagnosis for this admission?: Yes (3) Insufficient antepartum care Is this a current diagnosis for this admission?: Yes (4) Is this a current diagnosis for this admission?: Yes Discharge Data - Discharge Medication Home Medications: Pnv No.122/Iron/Folic Acid [ Multi Tablet] 1 each PO DAILY 10/28/16 Docusate Sodium [Colace 100 mg Capsule] 100 mg PO BID #30 capsule 11/22/16 Ferrous Sulfate 325 mg PO BID #60 tablet.dr 11/22/16 Ibuprofen [Motrin 800 mg Tablet] 800 mg PO Q6 #30 tablet 11/22/16 Oxycodone HCl/Acetaminophen [Percocet 5-325 mg Tablet] 1 tab PO Q4HP PRN #20 tablet 11/22/16 Gestational Age: 40.3 wks Reason(s) for Admission: Induction of Labor Procedures: NST, Ultrasound Intrapartum Procedure(s): : Low Cervical, Transverse - Data Baby 1 Male at 1 minute: 9 at 5 minutes: 9 Weight: 4.309 kg Home with Mother: Yes Complications: No - Diagnosis Test Laboratory: Temp Pulse Resp BP Pulse Ox 98.2 F 102 H 18 133/80 H 95 11/22/16 04:19 11/22/16 04:19 11/22/16 04:19 11/22/16 04:19 11/22/16 04:19 11/18/16 11/18/16 11/20/16 15:10 16:54 06:48 RBC 3.68 L 2.99 L Hgb 9.7 L 8.0 L Hct 29.4 L 23.6 L Urine Opiates Screen NEGATIVE - Discharge information/Instructions Discharge Activity: Activity As Tolerated, No Driving, No Lifting Over 10 Pounds , No Lifting/Push/Pulling, Pelvic Rest, Slowly Increase Activity, No tub bath Discharge Diet: Regular Disposition: HOME, SELF-CARE Follow up with: [facility] in: 1, Weeks
[2016-11-22] MEDS: DOCUSATE SODIUM 100 MG CAPSULE PO SCH (11:13)
[2016-11-22] MEDS: PRENATAL VITAMIN W-O CA NO5/FE FUMARATE/FA CAPSULE PO SCH (11:14)
[2016-11-22 11:17] VITALS: BP 134/65
--- NOTE | 2016-11-22 23:43 | Admission Physical ---
Datetime Report Generated by CPN: 11/22/2016 23:41 CURRENT ADMISSION Hx Assessment: The History has been Reviewed and is Current Chief Complaint: Uterine Contractions Indication for Induction: Post Dates; Maternal Diabetes Admit Plan: Admit to Unit; Initiate Labor Induction Protocol ALLERGIES Medication Allergies: No Medication Allergies: No Known Allergies (11/18/2016) Medication Allergies: No Known Allergies (11/16/2016) Medication Allergies: No Known Allergies (11/04/2016) Medication Allergies: No Known Allergies (10/28/2016) Medication Allergies: N/A Latex: No Latex Allergies Food Allergies: N/A Environmental Allergies: N/A OBSTETRICAL HISTORY EDC: 11/16/2016 00:00 : 1 Para: 0 Term: 0 : 0 SAB: 0 IAB: 0 Ectopic: 0 Livin Cesareans: 0 VBACs: 0 Multiple Births: 0 Gestational Diabetes: Yes Rh Sensitization: No Incompetent Cervix: No JAVI: No Infertility: No ART Treatment: No Uterine Anomaly: No IUGR: No Hx Previous C/S: No Macrosomia: No Hx Loss/Stillborn: No PIH: No Hx : No Placenta Previa/Abruption: No Depression/PP Depression: No PTL/PROM: No Post Hemorrhage: No Current Procedures: Ultrasound; NST Obstetrical History Comments: G1 - Current SEE RECORDS Alcohol: No Marijuana : No Cocaine: No Other Illicit Drugs: No Cigarettes: Former Smoker. 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 Heart Disease: No Hosp/Surgery: No Autoimmune Disorder: No Anesthetic Complications: No Kidney Disease: No Abnormal Pap Smear: No Neuro/Epilepsy: No Psychiatric Disorders: No Other Medical Diseases: No Hepatitis/Liver Disease: No Significant Family History: No Varicosities/Phlebitis: No Trauma/Violence : No Thyroid Dysfunction: No INFECTIOUS HISTORY Gonorrhea: No Genital Herpes: No Chlamydia: No Tuberculosis: No Syphilis: No Hepatitis: No HIV/AIDS Exposure: No Rash or Viral Illness: No HPV: No PHYSICAL EXAM General: Normal HEENT: Normal Neurologic: Normal Thyroid: Normal Heart: Normal Lungs: Normal Breast: Deferred Back: Normal Abdomen: Normal Genitourinary Exam: Normal Extremities: Normal DTRs: Normal Pelvic Type: Adequate Physical Exam Comments: G1 GDM GBS neg care at [facility] @ 25+3 weeks Late care, did not know she was until 24 weeks Vital Signs: Reviewed FETUS A EGA: 40.2 Monitoring: External US FHR- Baseline: 130 Variability: Moderate 6-25bpm Accelerations: 15X15 Decelerations: None Presentation: Vertex Admit Comment: 21 y/o here gor IOL for GDM and posdates, 40+2 weeks Cervidil augmentation POC discussed with pt and hsb, questions answered. PLANS FOR LABOR AND DELIVERY Labor and Delivery: None Pain Management: Epidural Feeding Preference: Breast Benefit of Breast Feed Discussed: Yes Circumcision: Yes INFORMED CONSENT Assignment: Genet Crabtree MD Signature: with User ID: [email or web address] : with User ID: [email or web address]
== END 2016-11-22 11:41 | disposition home or self-care (01) | DRG 766 ==
LOC: LC 14:37 → LR 16:36 → 2S 11-19 17:25
PROVIDERS: ADMIT Obstetrics & Gynecology; ATTEND Obstetrics & Gynecology
PROC: 4A1HXCZ Monitoring of Products of Conception, Cardiac Rate, External Approach (ICD-10-PCS; 2016-11-18)
PROC: 10D00Z1 Extraction of Products of Conception, Low, Open Approach (ICD-10-PCS; principal; 2016-11-19)
DX: O65.9 Obstructed labor due to maternal pelvic abnormality, unspecified (principal); O48.0 Post-term pregnancy; O24.420 Gestational diabetes mellitus in childbirth, diet controlled; Z37.0 Single live birth; Z3A.40 40 weeks gestation of pregnancy
CPT/HCPCS: 1961; 36415; 80307; 81005; 85025; 85027; 86592; 86850; 86900; 86901; 94760; 94799; J0131; J0690; J1885; J2250; J2270; J2300; J2405; J2590; J2765; J3010; J3490; S0119

== ENCOUNTER 2018-10-31 05:09 | Inpatient (IN) | payer OTHER ==
[2018-10-28 11:55] LABS: ABSOLUTE EOSINOPHILS # (AUTO) 0.1 10^3/uL (0.0-0.6); ABSOLUTE LYMPHOCYTES (AUTO) 1.8 10^3/uL (0.5-4.7); ABSOLUTE MONOCYTES (AUTO) 0.6 10^3/uL (0.1-1.4); ABSOLUTE NEUT (AUTO) 7.5 10^3/uL (1.7-8.2); BASOPHILS % (AUTO) 0.3 % (0-2); EOSINOPHILS % (AUTO) 0.6 % (0-6); HEMATOCRIT 35.1 % (36.0-47.0); HEMOGLOBIN 12.1 g/dL (12.0-15.5); LYMPHOCYTES % (AUTO) 17.6 % (13-45); MEAN CORPUSCULAR HEMOGLOBIN 30.6 pg (27.0-33.4); MEAN CORPUSCULAR HGB CONC 34.5 g/dL (32.0-36.0); MEAN CORPUSCULAR VOLUME 89 fl (80-97); MONOCYTES % (AUTO) 5.9 % (3-13); PLATELET COUNT 254 10^3/uL (150-450); RED BLOOD COUNT 3.96 10^6/uL (3.72-5.28); RED CELL DISTRIBUTION WIDTH 15.8 % (11.5-14.0); SEGMENTED NEUTROPHILS % (AUTO) 75.6 % (42-78); TOTAL CELLS COUNTED % (AUTO) 100 %
[2018-10-28 12:04] LABS: APPEARANCE,URINE CLEAR; BILIRUBIN,URINE NEGATIVE (NEGATIVE); COLOR,URINE YELLOW; GLUCOSE, URINE 50 mg/dL (NEGATIVE); KETONES,URINE NEGATIVE (NEGATIVE); LEUKOCYTE ESTERASE,URINE NEGATIVE (NEGATIVE); NITRITE,URINE NEGATIVE (NEGATIVE); PROTEIN,URINE NEGATIVE (NEGATIVE); URINE SPECIFIC GRAVITY 1.014; UROBILINOGEN,URINE NEGATIVE mg/dL (<2.0)
[2018-10-28 12:21] LABS: URINE AMPHETAMINES SCREEN NEGATIVE; URINE BARBITURATES SCREEN NEGATIVE; URINE BENZODIAZEPINES SCREEN NEGATIVE; URINE COCAINE SCREEN NEGATIVE; URINE MARIJUANA (THC) SCREEN NEGATIVE; URINE METHADONE SCREEN NEGATIVE; URINE PHENCYCLIDINE SCREEN NEGATIVE
[2018-10-31] MEDS ORDERED: CEFAZOLIN 1 GM/D5W RTU 1 GM/50 ML RTUPB IV PRN (05:20)
[2018-10-31] MEDS ORDERED: RINGERS SOLUTION,LACTATED 1,000 ML IV PRN ×2 (05:22→09:09)
[2018-10-31] MEDS ORDERED: OXYTOCIN 10 UNIT/ML VIAL ONE (07:03)
[2018-10-31] MEDS ORDERED: FENTANYL CITRATE INJ/PF 100 MCG/2 ML AMPUL ONE (07:03)
[2018-10-31] MEDS ORDERED: MIDAZOLAM 2 MG/2 ML INJ ONE (07:03)
[2018-10-31] MEDS ORDERED: ONDANSETRON HCL INJ/PF 4 MG/2 ML SDV ONE (07:03)
[2018-10-31] MEDS ORDERED: PROMETHAZINE HCL INJ 25 MG/1 ML VIAL ONE (07:03)
[2018-10-31] MEDS ORDERED: PROPOFOL INJ 200 MG/20 ML VIAL IV ONE (07:03)
[2018-10-31] MEDS ORDERED: BUPIVACAINE HCL/DEX-WATER/PF 15 MG/2 ML AMPULE ONE (07:03)
[2018-10-31] MEDS ORDERED: CITRIC ACID/SODIUM CITRATE ORAL SOLN 15 ML UDCUP ONE (07:04)
[2018-10-31] MEDS ORDERED: PHENYLEPHRINE HCL INJ/PF 10 MG/1 ML SDV ONE (07:04)
[2018-10-31] MEDS ORDERED: EPHEDRINE SULFATE INJ 50 MG/1 ML AMPULE ONE (07:04)
[2018-10-31] MEDS ORDERED: KETOROLAC TROMETHAMINE INJ/PF 30 MG/1 ML SDV ONE (07:34)
[2018-10-31] MEDS ORDERED: ACETAMINOPHEN 1,000 MG/100 ML RTUPB IV ONE (07:34)
[2018-10-31] MEDS ORDERED: TRIAMCINOLONE ACETONIDE INJ 40 MG/1 ML VIAL IM ONE (08:00)
[2018-10-31] MEDS ORDERED: MORPHINE SULFATE 10 MG/ML INJ IV PRN (08:05)
[2018-10-31] MEDS ORDERED: DIPHENHYDRAMINE HCL 50 MG/ML VIAL IV PRN (08:05)
[2018-10-31] MEDS ORDERED: FENTANYL CITRATE INJ/PF 100 MCG/2 ML AMPUL IV PRN ×3 (08:05)
[2018-10-31] MEDS ORDERED: MEPERIDINE HCL/PF INJ 25 MG/1 ML DISP.SYRIN IV PRN (08:05)
[2018-10-31] MEDS ORDERED: PROMETHAZINE HCL INJ 25 MG/1 ML VIAL IV PRN ×3 (08:05→09:09)
[2018-10-31] MEDS ORDERED: DIPH/PERTUSS(ACELL)/TETANUS VAC/PF 0.5 ML SYR (>=10YO) IM PRN (09:09)
[2018-10-31] MEDS ORDERED: ACETAMINOPHEN 325 MG TABLET PO PRN (09:09)
[2018-10-31] MEDS ORDERED: ACETAMINOPHEN 1,000 MG/100 ML RTUPB IV PRN (09:09)
[2018-10-31] MEDS ORDERED: MEASLES,MUMPS&RUBELLA VACC/PF 0.5 ML VIAL SUBCUT PRN (09:09)
[2018-10-31] MEDS ORDERED: OXYTOCIN/NORMAL SALINE 20 UNIT/1,000 ML RTUINJ IV PRN (09:09)
[2018-10-31] MEDS ORDERED: OXYCODONE-ACETAMINOPHEN 5-325 MG TABLET PO PRN (09:09)
[2018-10-31] MEDS ORDERED: SIMETHICONE 80 MG TAB.CHEW PO PRN (09:09)
--- NOTE | 2018-10-31 09:44 | OPERATIVE REPORT E ---
Operative Report NAME: BARNEY LARSON : 1995 AGE: 23Y DATE OF SURGERY: 10/31/2018 ROOM: 228 PREOPERATIVE DIAGNOSES: 1. IUP at 39 weeks and 2 days. 2. Previous , desires repeat. 3. Keloid scar, desires revision. POSTOPERATIVE DIAGNOSES: 1. IUP at 39 weeks and 2 days. 2. Previous , desires repeat. 3. Keloid scar, desires revision. OPERATION: Repeat low-transverse hysterotomy section with scar revision. SURGEON: STU PIKE M.D. ANESTHESIA: Sonny Encinas M.D. with a spinal. FINDINGS: Keloid scar along the patient's previous Pfannenstiel scar line. Male infant in cephalic presentation with Apgars of 9 and 9, weight 8 pounds 12 ounces. COMPLICATIONS: None. ESTIMATED BLOOD LOSS: 750 mL. SPECIMENS REMOVED: None. PROCEDURE IN DETAIL: The patient was taken to the operating room, prepared and draped in a normal sterile fashion in a supine position with a leftward tilt. The patient's previous scar was located and tented up with an Allis, and the scar was scored with the 10 blade on either side, undermined, and removed with the 10 blade. The tissue was then removed from the field, and this incision was carried through to the underlying layer of fascia with the same scalpel. The fascia was excised in the midline and extended laterally with Saniya. The fascia was dissected from the rectus muscle sharply with Saniya and the rectus muscle was divided. The peritoneal cavity was entered sharply with the same Mayos. The peritoneum was divided with good visualization of the bladder and the uterus. The bladder blade was inserted. The hysterotomy was nicked with a scalpel and extended laterally with surgeon finger fracture. The infant was then delivered atraumatically. The nose and mouth were suctioned with a suction bulb, the cord was clamped and cut, and the infant was handed off to awaiting pediatricians. Cord blood was collected. The placenta was removed manually. The uterus was exteriorized and cleared of clots and debris. The hysterotomy was closed with 0 Monocryl in a running, locked fashion. A second layer of the same suture was used to imbricate to ensure hemostasis. The uterus was returned to the abdomen and the rectus muscle and peritoneum were reapproximated with a mattress stitch of 2-0 chromic. The fascia was closed with 0 Vicryl. The subcutaneous layer was closed with plain catgut, and the skin was closed with 4-0 Vicryl. The incision was then injected with 60 mg of Kenalog steroid subcutaneously along the entire length of the scar. The patient tolerated the procedure well. Sponge, lap, and needle counts were correct x2, and the patient was taken to recovery in stable condition. DICTATING PHYSICIAN: STU PIKE M.D. [id number] PHY#: [id number] ID: [id number] JOB#: [id number] ACCT: [id number] cc:STU PIKE M.D. >
[2018-10-31] MEDS ORDERED: MORPHINE SULFATE 10 MG/ML INJ ONE (10:31)
[2018-10-31] MEDS: MORPHINE SULFATE 10 MG/ML INJ IV PRN ×3 (10:32→21:08)
[2018-10-31] MEDS: PRENATAL VITAMIN W DHA CAPSULE PO SCH (11:57)
[2018-10-31] MEDS: IBUPROFEN 800 MG TABLET PO SCH ×4 (11:58→23:46)
[2018-10-31] MEDS: OXYCODONE-ACETAMINOPHEN 5-325 MG TABLET PO PRN ×3 (11:58→23:45)
[2018-10-31] MEDS: DOCUSATE SODIUM 100 MG CAPSULE PO SCH ×2 (11:58→17:32)
[2018-10-31] MEDS: KETOROLAC TROMETHAMINE INJ/PF 30 MG/1 ML SDV IV SCH ×2 (13:38→22:15)
[2018-11-01] MEDS: MORPHINE SULFATE 10 MG/ML INJ IV PRN (01:34)
[2018-11-01] MEDS: OXYCODONE-ACETAMINOPHEN 5-325 MG TABLET PO PRN ×5 (04:19→21:42)
[2018-11-01] MEDS ORDERED: LACTATED RINGERS 1000 ML IV PRN (05:00)
[2018-11-01] MEDS ORDERED: LIDOCAINE 0.5% INJ-PF (5 MG/ML) 50 ML SDV SUBCUT PRN (05:00)
[2018-11-01] MEDS ORDERED: NORMAL SALINE 1000 ML (RENAL PATIENTS) IV PRN (05:00)
[2018-11-01] MEDS: IBUPROFEN 800 MG TABLET PO SCH ×3 (05:52→17:26)
[2018-11-01 07:33] LABS: HEMATOCRIT 29.8 % (36.0-47.0); HEMOGLOBIN 10.1 g/dL (12.0-15.5); MEAN CORPUSCULAR HEMOGLOBIN 30.2 pg (27.0-33.4); MEAN CORPUSCULAR HGB CONC 33.7 g/dL (32.0-36.0); MEAN CORPUSCULAR VOLUME 89 fl (80-97); PLATELET COUNT 216 10^3/uL (150-450); RED BLOOD COUNT 3.33 10^6/uL (3.72-5.28); RED CELL DISTRIBUTION WIDTH 16.3 % (11.5-14.0); WHITE BLOOD COUNT 11.1 10^3/uL (4.0-10.5)
[2018-11-01] MEDS: DOCUSATE SODIUM 100 MG CAPSULE PO SCH ×2 (09:21→17:26)
[2018-11-01] MEDS: PRENATAL VITAMIN W DHA CAPSULE PO SCH (09:22)
--- NOTE | 2018-11-01 11:02 | PDOC PROGRESS REPORT ---
Subjective-OB Progress Note for:: 11/01/18 Subjective: Pt doing well, no concerns. She reports light bleeding, reg diet and voiding without difficulty. She is ambulatory, waiting to see applications consultant. Physical Exam (OB) Vital Signs: Temp Pulse Resp BP Pulse Ox 98.7 F 81 18 120/66 98 11/01/18 08:28 11/01/18 08:28 11/01/18 08:28 11/01/18 08:28 11/01/18 08:28 Intake & Output 10/31/18 11/01/18 11/02/18 06:59 06:59 06:59 Intake Total 1500 Output Total 3800 Balance -2300 - PIH/Pre-Eclampsia DTR's: 1 + - Dressing Removed: No - optsite clean, dry and intact Incision: Dressing Closure Type: op site - Lochia Lochia Amount: Small 10-25 ml Lochia Color: Rubra/Red - Abdomen Description: Soft, Round Hernia Present: No Fundal Description: Firm, Midline Fundal Height: u/u - u/2 Objective-Diagnostic Laboratory: 11/01/18 07:13 11/01/18 07:13 WBC 11.1 H RBC 3.33 L Hgb 10.1 L Hct 29.8 L MCV 89 MCH 30.2 MCHC 33.7 RDW 16.3 H Plt Count 216 Assessment and Plan(PN) - Assessment and Plan (1) Status post repeat low transverse section Is this a current diagnosis for this admission?: Yes (2) GDM (gestational diabetes mellitus) Qualifiers: Gestational diabetes mellitus control: unspecified Trimester: unspecified trimester Qualified Code(s): O24.419 - Gestational diabetes mellitus in , unspecified control Is this a current diagnosis for this admission?: Yes - Time Spent with Patient Time with patient: Less than 15 minutes Medications reviewed and adjusted accordingly: Yes - Disposition Anticipated Discharge: Home Within: within 24 hours
[2018-11-02] MEDS: IBUPROFEN 800 MG TABLET PO SCH ×5 (00:40→23:48)
[2018-11-02] MEDS: OXYCODONE-ACETAMINOPHEN 5-325 MG TABLET PO PRN ×4 (02:53→21:30)
[2018-11-02] MEDS: DOCUSATE SODIUM 100 MG CAPSULE PO SCH ×2 (09:17→18:02)
[2018-11-02] MEDS: PRENATAL VITAMIN W DHA CAPSULE PO SCH (09:18)
--- NOTE | 2018-11-02 14:55 | PDOC PROGRESS REPORT ---
Subjective-OB Progress Note for:: 11/02/18 Subjective: 23yo G2 now P2 s/p repeat c/s ppd2. Pt. ambulating and voiding without difficulty. with assistance, would like to stay an extra day for additional help. Has no family in town except for FOB and his family but he left upset yesterday and has not been to see her today. Passing gas, no bowel movement, no other concerns. Physical Exam (OB) Vital Signs: Temp Pulse Resp BP Pulse Ox 98.6 F 81 16 130/58 H 97 11/02/18 10:39 11/02/18 10:39 11/02/18 10:39 11/02/18 10:39 11/02/18 10:39 Intake & Output 11/01/18 11/02/18 11/03/18 06:59 06:59 06:59 Intake Total 1500 2000 Output Total 3800 Balance -2300 2000 - General General Appearance: Appears well In distress: None - PIH/Pre-Eclampsia DTR's: 1 + Clonus: Negative Headache: Absent Epigastric Pain: No Visual Changes: No - Dressing Removed: No Incision: Dressing Closure Type: op site - Lochia Lochia Amount: Scant < 10 ml Lochia Color: Serosa/Brown - Abdomen Description: Soft Hernia Present: No Fundal Description: Firm Fundal Height: u/u - u/2 - Respiratory Respiratory Status: No respiratory distress - Extremities Upper extremity: Normal inspection Lower extremities: Normal inspection - Neurological Cognition: Normal Orientation: AAOx4 - Psychological Associated symptoms: Normal affect, Normal mood Objective-Diagnostic Laboratory: 11/01/18 07:13 Assessment and Plan(PN) - Assessment and Plan (1) Status post repeat low transverse section Is this a current diagnosis for this admission?: Yes Plan: routine pp care (2) Acute blood loss anemia Is this a current diagnosis for this admission?: Yes Plan: increase dietary iron and FeSO4 BID (3) Lack of family support Is this a current diagnosis for this admission?: Yes Plan: discharge planning placed, support as needed. - Time Spent with Patient Time with patient: Less than 15 minutes Medications reviewed and adjusted accordingly: Yes - Disposition Anticipated Discharge: Home Within: within 24 hours
[2018-11-02 21:26] LABS: APPEARANCE,URINE CLEAR; BILIRUBIN,URINE NEGATIVE (NEGATIVE); COLOR,URINE YELLOW; GLUCOSE, URINE NEGATIVE (NEGATIVE); KETONES,URINE NEGATIVE (NEGATIVE); LEUKOCYTE ESTERASE,URINE NEGATIVE (NEGATIVE); NITRITE,URINE NEGATIVE (NEGATIVE); PROTEIN,URINE NEGATIVE (NEGATIVE); URINE SPECIFIC GRAVITY 1.015; UROBILINOGEN,URINE NEGATIVE mg/dL (<2.0)
[2018-11-03] MEDS: OXYCODONE-ACETAMINOPHEN 5-325 MG TABLET PO PRN ×2 (01:33→08:04)
[2018-11-03] MEDS ORDERED: ONDANSETRON 4 MG TAB.RAPDIS PO ONE (04:15)
[2018-11-03] MEDS: IBUPROFEN 800 MG TABLET PO SCH ×2 (05:46→12:28)
[2018-11-03 09:04] VITALS: BP 134/64
[2018-11-03] MEDS: DOCUSATE SODIUM 100 MG CAPSULE PO SCH (09:20)
[2018-11-03] MEDS: PRENATAL VITAMIN W DHA CAPSULE PO SCH (09:20)
[2018-11-03] MEDS ORDERED: ONDANSETRON 4 MG TAB.RAPDIS PO SCH (10:00)
[2018-11-03] MEDS ORDERED: PHENAZOPYRIDINE HCL 200 MG TABLET PO ONE (10:00)
--- NOTE | 2018-11-03 10:22 | PDOC DISCHARGE SUMMARY ---
Final Diagnosis Discharge Date: 11/03/18 - Final Diagnosis (1) Status post repeat low transverse section Is this a current diagnosis for this admission?: Yes (2) GDM (gestational diabetes mellitus) Is this a current diagnosis for this admission?: Yes Discharge Data - Discharge Medication Home Medications: No122/Iron/Folic Acid [ Multi Tablet] 1 each PO DAILY 10/28/16 Reason(s) for Admission: Ceasarean Section-Repeat Procedures: NST Intrapartum Procedure(s): : Low Cervical, Transverse - Diagnosis Test Laboratory: Temp Pulse Resp BP Pulse Ox 98.2 F 95 18 134/64 H 99 11/03/18 09:04 11/03/18 09:04 11/03/18 09:04 11/03/18 09:04 11/03/18 09:04 10/28/18 10/28/18 11/01/18 11:30 11:39 07:13 RBC 3.96 3.33 L Hgb 12.1 10.1 L Hct 35.1 L 29.8 L Urine Opiates Screen NEGATIVE - Discharge information/Instructions Discharge Activity: Balance Activity w/Rest, No Lifting Over 10 Pounds, Pelvic Rest Discharge Diet: Regular Disposition: HOME, SELF-CARE Follow up with: [facility] in: 4, Days
[2018-11-03] MEDS ORDERED: PHENAZOPYRIDINE HCL 200 MG TABLET PO SCH (14:00)
== END 2018-11-03 14:08 | disposition home or self-care (01) | DRG 787 ==
LOC: 2S 05:09
PROVIDERS: ADMIT Obstetrics & Gynecology; ATTEND Obstetrics & Gynecology
PROC: 10D00Z1 Extraction of Products of Conception, Low, Open Approach (ICD-10-PCS; principal; 2018-10-31 07:45)
DX: O34.211 Maternal care for low transverse scar from previous cesarean delivery (principal); D62 Acute posthemorrhagic anemia; O24.410 Gestational diabetes mellitus in pregnancy, diet controlled; N85.8 Other specified noninflammatory disorders of uterus; Z3A.39 39 weeks gestation of pregnancy; Z37.0 Single live birth; O99.02 Anemia complicating childbirth; Z63.8 Other specified problems related to primary support group
CPT/HCPCS: 1961; 36415; 59025; 80307; 81001; 82962; 85025; 85027; 86850; 86900; 86901; 94799; J0131; J0690; J1885; J2250; J2270; J2370; J2405; J2550; J2590; J2704; J3010; J3490; J7120; S0119